=== PATIENT | male | born 1990 | race African-American/Black ===

== ENCOUNTER 2016-05-08 05:42 | Emergency (ER) | payer MEDICAID ==
[2016-05-08 06:24] LABS: BASOPHILS 0.4 % (0.0-2.0); EOSINOPHILS 2.3 % (0-7); HEMATOCRIT 28.1 % (42.0-54.0); HEMOGLOBIN 9.2 g/dL (13.5-17.5); LYMPHOCYTES 39.6 % (15-50); MCH 27.8 pg (26.0-34.0); MCHC 32.7 g/dL (31.0-37.0); MCV 84.9 fL (80.0-100.0); MEAN PLATELET VOLUME 8.4 fL (7.4-10.4); MONOCYTES 10.8 % (2-11); NEUTROPHILS 44.9 % (40-80); PLATELET COUNT 355 10x3/uL (130-400); RBC 3.31 10x6/uL (4.20-6.10); RDW 21.2 % (11.5-14.5); WBC 17.1 10x3/uL (4.8-10.8)
[2016-05-08] MEDS ORDERED: FOLIC ACID0.8 MG PO (21:57)
[2016-05-09 10:49] VITALS: BMI 18.2
== END 2016-05-08 08:00 | disposition home or self-care (01) ==
LOC: D.ER 05:42
PROVIDERS: Emergency Medicine
DX: D57.00 Hb-SS disease with crisis, unspecified (principal); I45.10 Unspecified right bundle-branch block

== ENCOUNTER 2016-05-08 08:49 | Emergency (ER) | payer MEDICAID ==
[2016-05-08 09:40] LABS: AMYLASE - SERUM 46 U/L (25-115); CREATINE KINASE 157 UL (21-232); LIPASE 70 U/L (73-393)
[2016-05-08 10:14] LABS: APPEARANCE CLEAR (CLEAR); BACTERIA FEW /hpf (NONE SEEN); BILIRUBIN NEGATIVE (NEGATIVE); COLOR YELLOW (YELLOW); EPITHELIAL CELLS RARE /hpf (0-5); GLUCOSE NEGATIVE (NEGATIVE); KETONE NEGATIVE (NEGATIVE); LEUKOCYTE ESTERASE NEGATIVE (NEGATIVE); MUCUS <1+ /lpf (NONE SEEN); NITRITE NEGATIVE (NEGATIVE); PROTEIN NEGATIVE (NEGATIVE); SPECIFIC GRAVITY 1.005 (1.005-1.020); WHITE CELLS - URINE RARE /hpf (0-5)
[2016-05-08 13:36] LABS: UDS - AMPHET NEGATIVE QUAL (NEGATIVE); UDS - BARB NEGATIVE QUAL (NEGATIVE); UDS - BENZO NEGATIVE QUAL (NEGATIVE); UDS - COCAINE NEGATIVE QUAL (NEGATIVE); UDS - METH NEGATIVE QUAL (NEGATIVE); UDS - OPIATE POSITIVE QUAL (NEGATIVE); UDS - PCP NEGATIVE QUAL (NEGATIVE); UDS - THC NEGATIVE QUAL (NEGATIVE)
[2016-05-08] MEDS ORDERED: FOLIC ACID0.8 MG PO (21:57)
[2016-05-09 10:49] VITALS: BMI 18.2
== END 2016-05-08 13:07 | disposition home or self-care (01) ==
LOC: D.ER 08:49
PROVIDERS: Family Medicine
DX: D57.00 Hb-SS disease with crisis, unspecified (principal)

== ENCOUNTER 2016-05-08 19:07 | Inpatient (IN) | payer MEDICAID ==
[~2016-05-08] VITALS: Ht 172.7 cm; Wt 54.4 kg
[2016-05-08] MEDS ORDERED: FOLIC ACID0.8 MG PO (21:57)
[2016-05-08 23:34] VITALS: BP 124/76; BMI 18.2
[2016-05-09 06:17] LABS: MCH 28.1 pg (26.0-34.0); MCV 87.7 fL (80.0-100.0); MEAN PLATELET VOLUME 8.7 fL (7.4-10.4); PLATELET COUNT 237 10x3/uL (130-400); RBC 2.85 10x6/uL (4.20-6.10); RDW 21.4 % (11.5-14.5); WBC 20.1 10x3/uL (4.8-10.8)
[2016-05-09 07:34] LABS: ANISOCYTOSIS OCC; HYPOCHROMASIA OCC; LYMPHOCYTES 31 % (15-50); MONOCYTES 10 % (2-11); NEUTROPHILS 53 % (40-80); PLATELET ESTIMATE NORMAL
[2016-05-09 07:35] LABS: ELLIPTOCYTES OCC
--- NOTE | 2016-05-09 07:51 | NUR ---
AWAKE AND ALERT. ORIENTED X3. C/O PAIN TO LEFT SHOULDER AND HIP THIS AM. WILL MONITOR. TO SOON FOR TORADOL. LUNGS ARE CLEAR BILATERALLY, NO COUGH NOTED. SKIN IS INTACT WITHOUT REDNESS. IV TO LEFT HAND IS PATENT WITHOUT REDNESS. NO NEEDS. NOTED.
[2016-05-09 08:12] VITALS: BP 138/84
--- NOTE | 2016-05-09 09:30 | NUR ---
UP TO SHOWER WITH SET UP ASSISTANCE ONLY.
--- NOTE | 2016-05-09 10:06 | NUR ---
REQUESTED AND GIVEN 30MG TORADOL SLOW IVP FOR C/O LEFT SHOULDER AND BACK AND LEFT LEG PAIN LEVEL 9. WILL MONITOR.
[2016-05-09 10:34] LABS: ALBUMIN 3.9 g/dL (3.4-5.0); ALKALINE PHOSPHATASE 120 U/L (46-116); ALT (SGPT) 39 U/L (10-68); BILIRUBIN - TOTAL 3.78 mg/dL (0.2-1.3); CALC OSMOLALITY 276 mosm/kg (275-300); CALCIUM 8.6 mg/dL (8.5-10.1); CARBON DIOXIDE 24.2 mmol/L (21.0-32.0); CHLORIDE - SERUM 106 mmol/L (98-107); CREATININE - SERUM 0.7 mg/dL (0.6-1.3); GLUCOSE 93 mg/dL (74-106); POTASSIUM - SERUM 4.3 mmol/L (3.5-5.1); PROTEIN - SERUM 6.8 g/dL (6.4-8.2); SODIUM 140 mmol/L (136-145); UREA NITROGEN 8 mg/dL (7-18); eGFR NON AFRICAN AMERICAN > 90 mL/min (90-120)
[2016-05-09 10:49] VITALS: Ht 172.7 cm; Wt 54.4 kg
[2016-05-09 12:06] VITALS: BP 128/85
--- NOTE | 2016-05-09 12:30 | NUR ---
LUNCH SERVED IN ROOM. ATE OVER HALF OF TRAY. DENIES NEEDS. REPORTS VERY LITTLE RELIEF WITH USE OF TORADOL. WILL CONTINUE TO MONITOR.
--- NOTE | 2016-05-09 14:45 | NUR ---
REQUESTED AND GIVNE 12.5 MG DEMEROL SLOW IVP FOR C/O LEFT SIDED PAIN LEVEL 8. WILL MONITOR.
--- NOTE | 2016-05-09 15:45 | NUR ---
REPORTS SOME RELIEF WITH USE OF DEMEROL. WILL CONTINUE TO MONITOR.
--- NOTE | 2016-05-09 15:48 | NUR ---
Patient Name: MARI FITCH Admission Status: ER Accout number: [id number] Admission Date: 05-09-2016 : 1990 Admission Diagnosis: Attending: FIGUEROA Current LOS: 1 Anticipated DC Date: 05-12-2016 Planned Disposition: Home or Self Care Primary Insurance: MEDICAID [place] Discharge Planning Comments: CM MET WITH PATIENT REGARDING D/C NEEDS AND PLANS. PATIENT STATED HE LIVES AT [facility] AND THERE ARE 7 STEPS W/RAILS TO ENTER AND NO STAIRS INSIDE. PATIENT STATED HIS FRIEND (PETAR) WILL DRIVE HIM HOME AT DISCHARGE. PATIENT STATED HE IS INDEPENDENT WITH HIS CARE AND HAS NO DME AT HOME. PATIENT HAS NO PCP AND USES [facility] [address] FOR HIS PHARMACY. PATIENT HAS NEVER HAD HOME HEALTH AND DOES NOT WANT IT. CM WILL CONTINUE TO FOLLOW PATIENT WITH D/C NEEDS AND PLANS. PCP NONE [facility] [address]- [phone] PETAR DELGADILLO (FRIEND) [phone] Rn Cardiovascular [facility]: Kate Chavez Is the patient Alert and Oriented? Yes 0 * How many steps to enter\exit or inside your home? 7 W/RAILS 0 * PCP NONE 0 * Pharmacy [facility] [address] 0 * Preadmission Environment [facility] 0 * Facility Name [facility]) 0 * ADLs Independent 0 * Equipment None 0 * List name and contact numbers for known caregivers / representatives who currently or will assist patient after discharge: PETAR DELGADILLO (FRIEND) [phone] 0 * Community resources currently utilized None 0 * Additional services required to return to the preadmission environment? Yes 0 * Can the patient safely return to the preadmission environment? Yes 0 * Has this patient been hospitalized within the prior 30 days at any hospital? No 0 Grand Total: 0
--- NOTE | 2016-05-09 16:25 | NUR ---
REPORTS PAIN TO LEFT SHOULDER ARM BACK AND LEG AT AT LEAST AN 8. REQUESTED AND GIVEN 30MG TORADOL SLOW IVP FOR SAME. WILL MONITOR.
[2016-05-09 17:31] VITALS: BP 124/77
--- NOTE | 2016-05-09 18:22 | NUR ---
ATE ABOUT HALF OF SUPPER TRAY. CONTINUES TO C/O PAIN LEVEL9. WILL MONITOR. REQUESTED AND GIVEN 1MG DILAUDID SLOW IVP FOR SAME. WILL MONITOR.
--- NOTE | 2016-05-09 19:30 | NUR ---
RESTING QUIETLY AT THIS TIME. DENIES NEEDS. NO CHANGES NOTED.
[2016-05-09 20:00] VITALS: BP 135/87
[2016-05-10] VITALS: BP 122/75
--- NOTE | 2016-05-10 03:30 | NUR ---
PATIENT'S IV OCCLUDED. FLUSHED IV. PATIENT DENIES OTHER NEEDS AT THIS TIME. BED IN LOWEST POSITION AND CALL LIGHT WITHIN REACH.
[2016-05-10 04:00] VITALS: BP 128/89
[2016-05-10 06:14] LABS: BASOPHILS 0.2 % (0.0-2.0); EOSINOPHILS 0.1 % (0-7); HEMATOCRIT 23.9 % (42.0-54.0); HEMOGLOBIN 7.9 g/dL (13.5-17.5); IMMATURE GRANULOCYTES 0.7 % (0-5); LYMPHOCYTES 26.7 % (15-50); MCH 28.1 pg (26.0-34.0); MCHC 33.1 g/dL (31.0-37.0); MCV 85.1 fL (80.0-100.0); MEAN PLATELET VOLUME 8.9 fL (7.4-10.4); MONOCYTES 15.3 % (2-11); PLATELET COUNT 215 10x3/uL (130-400); RBC 2.81 10x6/uL (4.20-6.10); RDW 19.5 % (11.5-14.5); WBC 24.1 10x3/uL (4.8-10.8)
[2016-05-10 06:15] LABS: % SATURATION 16 % (15-55); IRON 25 ug/dl (35-150); TOTAL IRON BIND CAPACITY 152 ug/dl (260-445); UNSAT IRON BIND CAPACITY 127 ug/dl (150-375)
[2016-05-10 06:48] LABS: ALBUMIN 3.6 g/dL (3.4-5.0); ALKALINE PHOSPHATASE 132 U/L (46-116); ALT (SGPT) 36 U/L (10-68); BILIRUBIN - TOTAL 5.24 mg/dL (0.2-1.3); CALCIUM 8.8 mg/dL (8.5-10.1); CARBON DIOXIDE 27.9 mmol/L (21.0-32.0); CHLORIDE - SERUM 102 mmol/L (98-107); CREATININE - SERUM 0.8 mg/dL (0.6-1.3); SODIUM 139 mmol/L (136-145); UREA NITROGEN 7 mg/dL (7-18); eGFR NON AFRICAN AMERICAN > 90 mL/min (90-120)
[2016-05-10 06:49] LABS: CALC OSMOLALITY 278 mosm/kg (275-300); FERRITIN 7493 ng/mL (3-244); GLUCOSE 152 mg/dL (74-106); POTASSIUM - SERUM 3.5 mmol/L (3.5-5.1)
[2016-05-10 08:18] VITALS: BP 112/62
--- NOTE | 2016-05-10 08:41 | NUR ---
PATIENT IS LYING IN BED IN LOW FOWLERS. IS READING HIS BIBLE. REPORTED PAIN OF A 7 AFTER THE REASSESSMENT. BROUGHT ICE WATER. DENIED NEEDS @ THIS TIME. BED LOW AND LOCKED. INTRUCTED TO CALL IF NEEDED ANYTHING. PATIENT VERBALIZED UNDERSTANDING.
--- NOTE | 2016-05-10 09:04 | NUR ---
MACHINE SHORTHAND REPORTER NOTE-PT SEEN AND ASSESSED. STATES PAIN IS CONTROLLED AT PRESENT. NO SOB NOTED OR VOICED. LYING ON LEFT SIDE AND IN PLEASANT MOOD THIS AM. NO NEEDS AT THIS TIME. CALL LIGHT PLACED IN REACH OF PATIENT.
--- NOTE | 2016-05-10 10:27 | NUR ---
PT HAD A VISITOR IN ROOM. STATED PAIN WAS A 7 OUT OF 10. ADMINISTERED PAIN MED. WILL REASSES IN 45 MIN. BED LOW AND LOCKED. INTRUCTED TO CALL IF NEEDED ANYTHING. DENIED NEEDS AT THIS TIME.
--- NOTE | 2016-05-10 12:59 | NUR ---
REASSESED PATIENT PAIN @ 8. ADMINISTERED MEDS ORDERED. PATIENT LYING IN BED ON LEFT SIDE. DENIED NEEDS @ THIS TIME. INSTRUCTED TO CALL IF NEEDED ANYTHING. PATIENT VERBALIZED UNDERSTANDING. WILL REASSES PAIN IN 30MINS. BED LOW, LOCKED, CALL LIGHT IN REACH.
[2016-05-10 13:19] LABS: APPEARANCE CLEAR (CLEAR); COLOR YELLOW (YELLOW)
[2016-05-10 13:20] LABS: BACTERIA FEW /hpf (NONE SEEN); BILIRUBIN NEGATIVE (NEGATIVE); EPITHELIAL CELLS 0-5 /hpf (0-5); GLUCOSE NEGATIVE (NEGATIVE); KETONE NEGATIVE (NEGATIVE); LEUKOCYTE ESTERASE TRACE (NEGATIVE); MUCUS <1+ /lpf (NONE SEEN); NITRITE NEGATIVE (NEGATIVE); PROTEIN NEGATIVE (NEGATIVE); WHITE CELLS - URINE OCC /hpf (0-5)
[2016-05-10 15:53] VITALS: BP 140/59
--- NOTE | 2016-05-10 16:08 | NUR ---
CHECKED ON PATIENT. LYING IN BED. COMPLAINTS OF PAIN @ 8. STATED THAT "HE DID NOT WANT TO TAKE ANYMORE PAIN MEDS DUE TO A PERSON MISUNDERSTANDING HIM FROM SAYING HE WAS "HOT FOR HIGH"" EDUCATED PATIENT ON THE IMPORTANCE TO KEEP PAIN UNDER CONTROL. VERBALIZED UNDERSTANDING BUT STATED THAT "HE WOULD HOLD OFF ON ANY MORE PAIN MEDS FOR NOW". ALSO TOOK HIM SOME CRANBERRY JUICE AND SPRITE. INSRUCTED TO CALLL IF NEEDED ANYTHING. DENIED FURTHER NEEDS. BED LOCKED, LOW, CALL LIGHT WITHIN REACH. PATIENT VERBALIZED UNDERSTANDING.
--- NOTE | 2016-05-10 18:03 | NUR ---
@ 1246 ADMININISTERD PAIN MEDICATION HAD A REACTION OF ITCHING. ORDERED BENADRYL 25MG. ADMINISTERED BENADRYL @ 1400 REPORTS OF NO MORE ITCHING. PATIENT HAS BEEN IN PAIN ALL DAY RANGING FROM 6-8. @ ONE POINT PT STATED THAT HE DID NOT WANT TO TAKE ANYMORE PAIN MEDS. EDUCATED PATIENT ON THE IMPORTANCE OF PAIN CONTROL. BACKED TO DILADID FROM 2MG TO 1MG PER DOC ORDERS. ALSO HAD AN XRAY. ONLY TIME WAS OOB. BED LOW, LOCKED AND CALL LIGHT IS IN REACH.
--- NOTE | 2016-05-10 19:57 | NUR ---
PATIENT SLEEPING ON RIGHT SIDE. AROUSES TO VOICE. HOB 20 DEGREES. RR EVEN AND UNLABORED. O2 OFF AT THIS TIME. IV TO LEFT HAND PATENT WITH NO REDNESS OR SWELLING. TELEMETRY ON. SRX2. BED LOW. CALL LIGHT WITHIN REACH.
[2016-05-10 20:00] VITALS: BP 120/71
--- NOTE | 2016-05-10 21:00 | NUR ---
ASSESSMENT COMPLETE. NIGHTTIME MEDS GIVEN. DILAUDID GIVEN FOR PAIN AND BENADRYL GIVEN FOR ALLERGIC REACTION. WILL REASSESS.
--- NOTE | 2016-05-10 23:45 | NUR ---
TORADOL GIVEN FOR PAIN AND TYLENOL GIVEN FOR A TEMP OF 101.7.
[2016-05-11] VITALS: BP 132/83
--- NOTE | 2016-05-11 03:00 | NUR ---
DILAUDID GIVEN FOR PAIN OF 7/10 AND BENADRYL GIVEN.
[2016-05-11 04:00] VITALS: BP 123/70
[2016-05-11 06:11] LABS: BASOPHILS 0.2 % (0.0-2.0); EOSINOPHILS 0.3 % (0-7); HEMATOCRIT 23.7 % (42.0-54.0); HEMOGLOBIN 7.7 g/dL (13.5-17.5); IMMATURE GRANULOCYTES 0.4 % (0-5); LYMPHOCYTES 22.3 % (15-50); MCH 27.2 pg (26.0-34.0); MCHC 32.5 g/dL (31.0-37.0); MCV 83.7 fL (80.0-100.0); MEAN PLATELET VOLUME 8.8 fL (7.4-10.4); MONOCYTES 20.1 % (2-11); NEUTROPHILS 56.7 % (40-80); PLATELET COUNT 187 10x3/uL (130-400); RBC 2.83 10x6/uL (4.20-6.10); RDW 18.8 % (11.5-14.5)
[2016-05-11 06:45] LABS: ALBUMIN 3.5 g/dL (3.4-5.0); ALKALINE PHOSPHATASE 123 U/L (46-116); ALT (SGPT) 35 U/L (10-68); BILIRUBIN - TOTAL 5.07 mg/dL (0.2-1.3); CALCIUM 8.9 mg/dL (8.5-10.1); CHLORIDE - SERUM 103 mmol/L (98-107); CREATININE - SERUM 0.7 mg/dL (0.6-1.3); GLUCOSE 96 mg/dL (74-106); POTASSIUM - SERUM 3.8 mmol/L (3.5-5.1); PROTEIN - SERUM 6.5 g/dL (6.4-8.2); SODIUM 141 mmol/L (136-145); eGFR NON AFRICAN AMERICAN > 90 mL/min (90-120)
[2016-05-11 06:46] LABS: CALC OSMOLALITY 279 mosm/kg (275-300); UREA NITROGEN 9 mg/dL (7-18)
--- NOTE | 2016-05-11 07:30 | NUR ---
PT ASSESSMENT COMPLETE PT AWAKE AND ALERT ORINETED X 3 LUNGS CLAER BILAT. BSA X 4 QUADS. PT PIV INFILTRATED WILL RESITE.
[2016-05-11 07:58] VITALS: BP 120/70
[2016-05-11 09:18] LABS: FOLATE (FOLIC ACID) - SERUM 11.9 ng/mL (>3.0); VITAMIN D 25 HYDROXY 4.8 ng/mL (30.0-100.0)
--- NOTE | 2016-05-11 09:38 | NUR ---
IV access-20 gauge inserted in left hand for IV access. Mar Díaz RN
[2016-05-11 11:39] VITALS: BP 117/78
--- NOTE | 2016-05-11 11:50 | NUR ---
FIRST UNIT OF PRBC INITIATED PER RN VITAL SIGNS TAKEN WNL. TRANSFUSING THROUGH 20G TO RIGHT UPPER CHEST. MONITORED FIRST 15 MINUTES PER RN, NO REACTIONS NOTED. TREATED WITH TYLENOL PER ORDER.
--- NOTE | 2016-05-11 14:25 | NUR ---
NUTRITION MONITORING & EVAL SIGRID REVIEWED. PT TOLERATING REG DIET. 75% INTAKE RECENT MEALS. WILL CONTINUE TO PROVIDE DIET, HONOR FOOD PREFERENCES. RD FOLLOWING
--- NOTE | 2016-05-11 15:30 | NUR ---
FIRST UNIT PRBC COMPLETE, PT TOLERATED WELL. DENIES SOB, LUNGS CLEAR, CALL LIGHT IN REACH, SIDE RAILS UP X2. WILL INITIATE SECOND UNIT PER RN WHEN AVAILABLE.
[2016-05-11 15:45] VITALS: BP 146/82
--- NOTE | 2016-05-11 15:50 | NUR ---
SECOND UNIT OF PRBC INITIATED PER RN. VITAL SIGNS WNL. NO ACUTE DISTRESS NOTED. MONITORED X 15 MINUTES PER RN. NO REACTION NOTED. WILL CONTINUE TO MONITOR.
--- NOTE | 2016-05-11 17:46 | NUR ---
PRBC TRANSFUSION COMPLETE. NEW ORDERS PER DR. LOMAS FOR NORCO 2 TABS PO Q4 GIVEN ORDERED, WILL MONITOR EFFECTIVENESS.
--- NOTE | 2016-05-11 19:16 | NUR ---
REFUSE 1900 TREATMENT, STATED HE HAS NOT TAKEN BREATHING TREATMENT ALL DAY TODAY AND DOES NOT NEED THEM. WILL DO HIS BREATHING EXERCISE(IS), GETTING 1999 ON THAT.
--- NOTE | 2016-05-11 19:38 | NUR ---
INTRODUCED AND ASSESSED AT THIS TIME
[2016-05-11 20:00] VITALS: BP 107/68
--- NOTE | 2016-05-11 22:33 | NUR ---
ALL BEDTIME MEDS TAKEN. HE IS RESTING QUIET READING THE BIBLE. ALL BEDTIME MEDS TAKEN AND ALSO TWO NORCO ORDERED. HE IS QUIET AND COOPERATIVE. THERE IS NOT SCD'S AT THIS TIME. VERY QUIET YOUNG MAN.
[2016-05-12] VITALS: BP 129/86
[2016-05-12 04:00] VITALS: BP 138/89
[2016-05-12 05:06] LABS: HEMATOCRIT 27.2 % (42.0-54.0); HEMOGLOBIN 9.3 g/dL (13.5-17.5); LYMPHOCYTES 18.4 % (15-50); MCH 28.3 pg (26.0-34.0); MCHC 34.2 g/dL (31.0-37.0); MCV 82.7 fL (80.0-100.0); MEAN PLATELET VOLUME 8.8 fL (7.4-10.4); NEUTROPHILS 62.5 % (40-80); PLATELET COUNT 178 10x3/uL (130-400); RBC 3.29 10x6/uL (4.20-6.10); RDW 19.7 % (11.5-14.5); WBC 17.1 10x3/uL (4.8-10.8)
[2016-05-12 05:21] LABS: ALBUMIN 3.4 g/dL (3.4-5.0); ALKALINE PHOSPHATASE 112 U/L (46-116); ALT (SGPT) 38 U/L (10-68); CALC OSMOLALITY 278 mosm/kg (275-300); CALCIUM 8.6 mg/dL (8.5-10.1); CARBON DIOXIDE 29.2 mmol/L (21.0-32.0); CHLORIDE - SERUM 103 mmol/L (98-107); CREATININE - SERUM 0.8 mg/dL (0.6-1.3); GLUCOSE 107 mg/dL (74-106); PROTEIN - SERUM 6.6 g/dL (6.4-8.2); SODIUM 140 mmol/L (136-145); eGFR NON AFRICAN AMERICAN > 90 mL/min (90-120)
[2016-05-12 05:22] LABS: UREA NITROGEN 12 mg/dL (7-18)
--- NOTE | 2016-05-12 07:56 | NUR ---
Patient is awake and alert he is orieted x3, he says he is having pain, but the medication they have prescribed is not working. He is currently on Rougon, but he says nothing he has tried has been helpful. Will provide Rougon and then ask Nurse Practitioner what she suggests.
[2016-05-12 08:13] VITALS: BP 125/88
--- NOTE | 2016-05-12 08:23 | NUR ---
Patient c/o pain rates it /10, says it is in his left shoulder. Gratz 2 po provided as ordered, see MAR.
--- NOTE | 2016-05-12 12:30 | NUR ---
ATTEMPTED TO PROVIDE DILAUDID GREY GOODS MARKER, PATIENT REFUSED, HE THEN BEGAN TO SAY WE WERE FRAUDULENT AND THAT HE WILL CALL MEDICARE. 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 LISTENED TO PATIENT HE IS IN PAIN, DID CALL NURSE PRACTITIONER TO GET A NEW ORDER FOR PAIN MEDS.
[2016-05-12 12:43] VITALS: BP 113/75
--- NOTE | 2016-05-12 14:45 | NUR ---
PATIENT RATES PAIN 10/10, PROVIDED DILAUDID AND BENADRYL PER ORDER.
--- NOTE | 2016-05-12 15:10 | NUR ---
CHECKED ON PATIENT AND HE SAYS "NOW, LET'S BE REAL, YOU KNOW YOU TOOK A LOT LONGER TO PUSH THE BENADRYL AND FLUSH THAN YOU TOOK FOR THE PAIN MED" EXPLAINED THAT IT TOOK TWO MINUTES FOR EACH. PATIENT IS ACTING BIZARRE, ASKED OTHERS WHAT THEY WERE SEEING.
--- NOTE | 2016-05-12 15:24 | NUR ---
TEMP 102.2, PAGED NURSE PRACTITIONER, WILL PROVIDE TYLENOL PO
--- NOTE | 2016-05-12 15:25 | NUR ---
NURSE PRACTITIONER CALLED BACK, NEW ORDER FOR BLOOD CULTURE X1 AND UA.
[2016-05-12 15:50] VITALS: BP 145/84
--- NOTE | 2016-05-12 17:30 | NUR ---
PATIENT MAKING MULTIPLE REQUESTS TO GET ONE OF HIS FRIENDS PHONE NUMBERS, DID PROVIDE NUMBER, BUT PATIENT IS STILL UPSET.
--- NOTE | 2016-05-12 18:07 | NUR ---
PATIENT C/O PAIN AT IV SITE, CALLED ICU TO SEE IF THEY CAN RESITE.
--- NOTE | 2016-05-12 18:16 | NUR ---
ASKED PATIENT IF HE WAS ABLE TO GET A URINE SAMPLE HE HAS A UA ORDERED, HE SAYS "NO", WILL MONITOR.
--- NOTE | 2016-05-12 18:40 | NUR ---
BIRGIT VELASCO FROM ICU ATTEMPTED TO IV ATEMPTS, BOTH ATTEMPTS FAILED, SHE SUGGESTED POSSIBLE PICC LINE OR MIDLINE.
[2016-05-12 21:03] VITALS: BP 131/93
--- NOTE | 2016-05-12 23:24 | NUR ---
PT WAS ASSESSED AT THE BEGINNING OF THE SHIFT. HE DID NOT HAVE AN IV SITE AND SEVERAL NURSES HAD TRIED. AFTER 4 TRYS AFTER SHIFT CHANGE WE CALL THE MD. DR OCAMPO GAVE US ORDERS TO MAKE THE PAIN MED IM AND HIS BENADRYL PO. WE ALSO GAVE A ONE TIME DOSE OF LEVAQUIN PO SO HE WOULD NOT MISS HIS ANTIBOTIC WHEN IT WAS DUE.HE IS ABLE TO GET UP TO THE BATHROOM TO VOID AND IS ALSO USING A URINAL. HE IS TURNING AND REPOSITION NEEDED, EVEN WALKING THE HALLS. THE BED IS LOW, RAILS UP X'S 2 WITH THE CALL LIGHT AT HAND.
[2016-05-13 01:17] VITALS: BP 143/97
[2016-05-13 04:00] VITALS: BP 146/95
[2016-05-13 05:30] LABS: HEMATOCRIT 29.7 % (42.0-54.0); LYMPHOCYTES 22.4 % (15-50); MCH 27.8 pg (26.0-34.0); MCHC 33.7 g/dL (31.0-37.0); MCV 82.5 fL (80.0-100.0); MEAN PLATELET VOLUME 8.9 fL (7.4-10.4); NEUTROPHILS 58.5 % (40-80); PLATELET COUNT 233 10x3/uL (130-400); RDW 19.2 % (11.5-14.5); WBC 16.9 10x3/uL (4.8-10.8)
[2016-05-13 05:46] LABS: ALBUMIN 3.7 g/dL (3.4-5.0); ALKALINE PHOSPHATASE 117 U/L (46-116); ALT (SGPT) 35 U/L (10-68); BILIRUBIN - TOTAL 3.34 mg/dL (0.2-1.3); CALC OSMOLALITY 274 mosm/kg (275-300); CALCIUM 9.7 mg/dL (8.5-10.1); CARBON DIOXIDE 28.6 mmol/L (21.0-32.0); CHLORIDE - SERUM 101 mmol/L (98-107); CREATININE - SERUM 0.8 mg/dL (0.6-1.3); GLUCOSE 88 mg/dL (74-106); POTASSIUM - SERUM 4.3 mmol/L (3.5-5.1); PROTEIN - SERUM 8.2 g/dL (6.4-8.2); SODIUM 138 mmol/L (136-145); UREA NITROGEN 13 mg/dL (7-18); eGFR NON AFRICAN AMERICAN > 90 mL/min (90-120)
--- NOTE | 2016-05-13 07:30 | NUR ---
PT REC'D FROM KRISTA ROMAN. RESTING IN BED WITH EYES CLOSED. NO SIGNS OF DISTRESS. RESP EVEN AND UNLABORED. BED LOW, CALL LIGHT IN REACH, CPOC.
--- NOTE | 2016-05-13 08:03 | NUR ---
PATIENT ALERT IN LOW FOREMAN POSITION. RESPIRATIONS EVEN AND UNLABORED. SIDE RAILS UP X2. BED IN LOW POSITION. CALL LIGHT IN REACH.
[2016-05-13 08:24] VITALS: BP 114/78
--- NOTE | 2016-05-13 10:55 | NUR ---
MORNING MEDS PASSED AT THIS TIME. PT RATING CURRENT PAIN IN LEFT SHOULDER AND HIP 09/02. REFUSING PAIN MEDS. ALSO REFUSING MIRALAX, AND REFUSED NICOTINE PATCH. BED LOW, CALL LIGHT IN REACH, DENIES NEEDS, CPOC.
[2016-05-13 12:42] VITALS: BP 100/66
--- NOTE | 2016-05-13 13:00 | NUR ---
IV RESITED BY KRISTA SILVA. X2 ATTEMPTS. 22 GUAGE IV SITED TO LEFT FOREARM. CONNECTED IVF TO IT AND ADMINISTERED IV DILAUDID FOR 10/10 L SHOULDER AND HIP PAIN. WILL REASSESS.
[2016-05-13 18:39] VITALS: BP 127/82
[2016-05-13 20:49] VITALS: BP 120/82
--- NOTE | 2016-05-13 23:15 | NUR ---
ASSESSED AT THE BEGINNING OF THE SHIFT. PT IS ALAERT AND ORIENTED, ABLAE TO VERBALIZE NEEDS. HE NOW HAS A IV IN HIS LEFT FOREARM WHICH IS WORKING WELL. FRIENDS CAME TO VISIT DURING THE EVENING AND SEEMED TO CHEER HIM UP QUIET A BIT. HE RECEIVED PAIN MEDS AND BENADRYL AT AROUND 2130 WHICH HELPED HIM REST BETTER. HE KEEPS HIS LIGHT ON AND IS READING HIS BIBLE OFF AND ON. INSTRUCTED THAT HE NEEDED TO GIVE US A URINE SPECIMEN FOR LAB. THE BED IS LOW, RAILS UP X'S 2 WITH THE CALL LIGHT AT HAND.
[2016-05-14] VITALS: BP 112/81
[2016-05-14 04:00] VITALS: BP 124/94
--- NOTE | 2016-05-14 07:00 | NUR ---
PT REC'D FROM KRISTA ROMAN. RESTING IN BED QUIETLY. RATING CURRENT PAIN IN L SHOULDER AND L HIP 10/10. WILL ADMINISTER PAIN MEDS WHEN TIME. BED LOW, CALL LIGHT IN REACH, DENIES NEEDS.
[2016-05-14 07:01] LABS: APPEARANCE CLEAR (CLEAR); BILIRUBIN NEGATIVE (NEGATIVE); COLOR YELLOW (YELLOW); GLUCOSE NEGATIVE (NEGATIVE); KETONE NEGATIVE (NEGATIVE); LEUKOCYTE ESTERASE NEGATIVE (NEGATIVE); NITRITE NEGATIVE (NEGATIVE); PROTEIN NEGATIVE (NEGATIVE); SPECIFIC GRAVITY 1.005 (1.005-1.020); UROBILINOGEN NORMAL (NORMAL)
[2016-05-14 07:04] LABS: BASOPHILS 0.4 % (0.0-2.0); EOSINOPHILS 0.8 % (0-7); HEMATOCRIT 31.7 % (42.0-54.0); HEMOGLOBIN 10.3 g/dL (13.5-17.5); IMMATURE GRANULOCYTES 0.3 % (0-5); LYMPHOCYTES 21.3 % (15-50); MCH 26.8 pg (26.0-34.0); MCHC 32.5 g/dL (31.0-37.0); MCV 82.3 fL (80.0-100.0); MEAN PLATELET VOLUME 8.8 fL (7.4-10.4); MONOCYTES 21.9 % (2-11); NEUTROPHILS 55.3 % (40-80); PLATELET COUNT 214 10x3/uL (130-400); RBC 3.85 10x6/uL (4.20-6.10); RDW 18.4 % (11.5-14.5); WBC 14.7 10x3/uL (4.8-10.8)
[2016-05-14 07:42] LABS: ALBUMIN 3.8 g/dL (3.4-5.0); ALKALINE PHOSPHATASE 118 U/L (46-116); ALT (SGPT) 37 U/L (10-68); BILIRUBIN - TOTAL 2.79 mg/dL (0.2-1.3); CALC OSMOLALITY 274 mosm/kg (275-300); CALCIUM 9.3 mg/dL (8.5-10.1); CARBON DIOXIDE 27.6 mmol/L (21.0-32.0); CHLORIDE - SERUM 101 mmol/L (98-107); CREATININE - SERUM 0.7 mg/dL (0.6-1.3); GLUCOSE 89 mg/dL (74-106); POTASSIUM - SERUM 4.6 mmol/L (3.5-5.1); PROTEIN - SERUM 7.6 g/dL (6.4-8.2); SODIUM 138 mmol/L (136-145); UREA NITROGEN 12 mg/dL (7-18); eGFR NON AFRICAN AMERICAN > 90 mL/min (90-120)
[2016-05-14 08:07] VITALS: BP 122/86
--- NOTE | 2016-05-14 09:35 | NUR ---
PT RESTING IN BED, ASSESSMENT COMPLETE, PAIN AT A 7 OUT OF 10, NO OTHER COMPLAINTS AT THIS TIME, DILAUDED AND BENADRYL GIVEN PER MAR, TOLERATED WELL, CALL LIGHT IN REACH, BED LOWEST POSITION, WILL CONINUE TO MONITOR
--- NOTE | 2016-05-14 09:40 | NUR ---
PATIENT IN LEFT LATERAL POSITION RESTING WITH EYES CLOSED. RESPIRATIONS EVEN AND UNLABORED. SIDE RAILS UP X2. BED IN LOW POSITION. CALL LIGHT IN REACH.
--- NOTE | 2016-05-14 11:15 | NUR ---
PT COMPLAINS OF EXTREME PAIN IN LEFT LEG, PAIN MEDS DIDN'T HELP WITH THE PAIN, GIVEN MOTRIN FOR BREAKTHROUGH PAIN, WILL CONTINUE TO MONITOR
[2016-05-14 12:03] VITALS: BP 107/69
--- NOTE | 2016-05-14 14:25 | NUR ---
PT COMPLAINS OF PAIN AT A LEVEL OF 7, PAIN MEDS GIVEN PER MAR WILL CONTINUE TO MONITOR
[2016-05-14 16:07] VITALS: BP 112/70
--- NOTE | 2016-05-14 20:00 | NUR ---
ASSESSMENT PER FLOWSHEET. IV PATENT LEFT FOREARM OF LR AT 125CC'S/HR, SITE CLEAR. TELM. SHOWS SR OF 74. DENIES NEEDS.
--- NOTE | 2016-05-14 21:00 | NUR ---
MEDS GIVEN PER MAR.
[2016-05-14 21:43] VITALS: BP 111/64
--- NOTE | 2016-05-14 22:41 | NUR ---
C/O LEFT SHOULDER PAIN. DILAUDID 1 MG IV AND BENADRYL IVP GIVEN FOR PAIN CONTROL.
--- NOTE | 2016-05-15 00:25 | NUR ---
AWAKE PLAYING ON HIS CELL PHONE. DENIES NEEDS.
[2016-05-15 05:00] VITALS: BP 112/74
--- NOTE | 2016-05-15 06:56 | NUR ---
NO CHANGES IN ASSESSMENT.
[2016-05-15 08:34] VITALS: BP 110/74
[2016-05-15 09:59] LABS: BASOPHILS 0.3 % (0.0-2.0); EOSINOPHILS 1.4 % (0-7); HEMATOCRIT 29.9 % (42.0-54.0); HEMOGLOBIN 9.9 g/dL (13.5-17.5); IMMATURE GRANULOCYTES 0.3 % (0-5); LYMPHOCYTES 20.1 % (15-50); MCH 26.8 pg (26.0-34.0); MCHC 33.1 g/dL (31.0-37.0); MCV 80.8 fL (80.0-100.0); MONOCYTES 14.6 % (2-11); NEUTROPHILS 63.3 % (40-80); RDW 18.9 % (11.5-14.5); WBC 11.8 10x3/uL (4.8-10.8)
[2016-05-15 10:01] LABS: PLATELET COUNT 303 10x3/uL (130-400)
[2016-05-15 10:14] LABS: ALBUMIN 3.5 g/dL (3.4-5.0); ALKALINE PHOSPHATASE 120 U/L (46-116); BILIRUBIN - TOTAL 1.88 mg/dL (0.2-1.3); CALC OSMOLALITY 278 mosm/kg (275-300); CALCIUM 9.6 mg/dL (8.5-10.1); CARBON DIOXIDE 29.3 mmol/L (21.0-32.0); CHLORIDE - SERUM 101 mmol/L (98-107); CREATININE - SERUM 0.7 mg/dL (0.6-1.3); GLUCOSE 120 mg/dL (74-106); POTASSIUM - SERUM 4.4 mmol/L (3.5-5.1); PROTEIN - SERUM 8.2 g/dL (6.4-8.2); SODIUM 139 mmol/L (136-145); UREA NITROGEN 13 mg/dL (7-18); eGFR NON AFRICAN AMERICAN > 90 mL/min (90-120)
[2016-05-15 10:16] LABS: ALT (SGPT) 58 U/L (10-68)
[2016-05-15 11:23] VITALS: BP 119/83
[2016-05-15 15:18] VITALS: BP 116/80
[2016-05-15 16:11] LABS: HGB - A2 3.4 % (0.7-3.1); HGB - F 2.6 % (0.0-2.0); HGB - INTERPRETATION Note: (()); HGB - SOLUBILITY Positive (Negative)
[2016-05-15 19:00] VITALS: BP 103/60
--- NOTE | 2016-05-15 19:30 | NUR ---
RECIEVED SHIFT REPORT. PT IS LYING IN BED. ALERT AND ORIENTED AND ABLE TO VERBALIZE NEEDS. IV IS PATENT AND FLUIDS ARE RUNNING PER ORDER. PT IS AMBULATORY BUT WAS INSTRUCTED TO CALL FOR ANY ASSISTANCE NEEDED. PT STATES PAIN IS 7/10. NO NEEDS ARE VERBALIZED AT THIS TIME. WILL CONTINUE TO MONITOR. SIDE RAILS ARE UP X 2. BED IS IN LOWEST POSITION. CALL LIGHT IS WITHIN REACH.
--- NOTE | 2016-05-15 20:00 | NUR ---
SHIFT ASSESSMENT COMPLETED. NIGHT MEDICATION WILL BE GIVEN BY MAIL RIDER WITH HIS INSTRUCTOR. NO NEEDS ARE VOICED. WILL MONITOR. SIDE RAILS X 2. BED LOW. CALL LIGHT IN REACH.
[2016-05-16] VITALS: BP 122/80
--- NOTE | 2016-05-16 01:25 | NUR ---
PRN MEDS GIVEN PER MAR FOR C/O PAIN 10/02, NINFA WELL, CL IN REACH
[2016-05-16 04:00] VITALS: BP 108/66
[2016-05-16 05:25] LABS: HEMATOCRIT 27.9 % (42.0-54.0); MCH 26.3 pg (26.0-34.0); MCHC 32.3 g/dL (31.0-37.0); MCV 81.6 fL (80.0-100.0); MEAN PLATELET VOLUME 9.2 fL (7.4-10.4); PLATELET COUNT 362 10x3/uL (130-400); RBC 3.42 10x6/uL (4.20-6.10); RDW 19.3 % (11.5-14.5); WBC 11.6 10x3/uL (4.8-10.8)
[2016-05-16 05:44] LABS: ALBUMIN 3.3 g/dL (3.4-5.0); ALKALINE PHOSPHATASE 123 U/L (46-116); BILIRUBIN - TOTAL 1.69 mg/dL (0.2-1.3); CALC OSMOLALITY 278 mosm/kg (275-300); CALCIUM 9.5 mg/dL (8.5-10.1); CARBON DIOXIDE 30.4 mmol/L (21.0-32.0); CHLORIDE - SERUM 102 mmol/L (98-107); CREATININE - SERUM 0.7 mg/dL (0.6-1.3); GLUCOSE 97 mg/dL (74-106); POTASSIUM - SERUM 4.1 mmol/L (3.5-5.1); PROTEIN - SERUM 7.9 g/dL (6.4-8.2); SODIUM 140 mmol/L (136-145); UREA NITROGEN 13 mg/dL (7-18); eGFR NON AFRICAN AMERICAN > 90 mL/min (90-120)
[2016-05-16 05:49] LABS: ALT (SGPT) 78 U/L (10-68)
[2016-05-16 06:44] LABS: EOSINOPHILS 3 % (0-7); HYPOCHROMASIA 1+; LYMPHOCYTES 33 % (15-50); MONOCYTES 15 % (2-11); NEUTROPHILS 49 % (40-80); PLATELET ESTIMATE NORMAL
[2016-05-16 06:45] LABS: ANISOCYTOSIS OCC
[2016-05-16 07:53] VITALS: BP 127/88
[2016-05-16] MEDS ORDERED: NICODERM C1 PATCH .2 TRANSDERM (10:05)
--- NOTE | 2016-05-16 10:53 | NUR ---
CM REASSESSMENT NOTE: PATIENT IS DISCHARGING TODAY WITH NO NEEDS PER PATIENT. PATIENT STATED HIS FRIEND WILL DRIVE HIM AT DISCHARGE.
--- NOTE | 2016-05-16 11:19 | NUR ---
D/C IV WITH CATH INTACT. DISCHARGE INSTRUCTIONS COMPLETED WITH PATIENT. PATIENT VERBALIZED UNDERSTANDING AND DENIES QUESTIONS.
== END 2016-05-16 11:20 | disposition home or self-care (01) | DRG 812 ==
LOC: D.ER 19:07 → OBSVTIME 20:24 → D.MS 20:24
PROVIDERS: Emergency Medicine; Family Medicine; Legal Medicine; ADMIT Family Medicine
DX: D57.00 Hb-SS disease with crisis, unspecified (principal); D61.89 Other specified aplastic anemias and other bone marrow failure syndromes; E80.6 Other disorders of bilirubin metabolism; M14.8 Arthropathies in other specified diseases classified elsewhere; E83.19 Other disorders of iron metabolism

== ENCOUNTER 2016-08-03 04:35 | Emergency (ER) | payer MEDICAID ==
[2016-05-09 10:49] VITALS: BMI 18.2
[~2016-08-03 04:35] MED LIST: FOLIC ACID0.8 MG PO; NICODERM C1 PATCH .2 TRANSDERM
[2016-08-03 05:15] LABS: BASOPHILS 0.3 % (0-2); EOSINOPHILS 1.2 % (0-7); HEMATOCRIT 27.3 % (42.0-54.0); HEMOGLOBIN 8.9 g/dL (13.5-17.5); IMMATURE GRANULOCYTES 3.8 % (0-5); LYMPHOCYTES 45.6 % (15-50); MCH 27.1 pg (26.0-34.0); MCHC 32.6 g/dL (31.0-37.0); MEAN PLATELET VOLUME 8.3 fL (7.4-10.4); MONOCYTES 8.3 % (2-11); NEUTROPHILS 40.8 % (40-80); PLATELET COUNT 410 10x3/uL (130-400); RBC 3.29 10x6/uL (4.20-6.10); RDW 27.4 % (11.5-14.5); WBC 19.9 10x3/uL (4.8-10.8)
[2016-08-03 07:07] LABS: ALBUMIN 4.1 g/dL (3.4-5.0); ALKALINE PHOSPHATASE 143 U/L (46-116); ALT (SGPT) 27 U/L (10-68); BILIRUBIN - TOTAL 3.74 mg/dL (0.2-1.3); CALC OSMOLALITY 268 mosm/kg (275-300); CARBON DIOXIDE 27.2 mmol/L (21.0-32.0); CHLORIDE - SERUM 102 mmol/L (98-107); CREATININE - SERUM 0.8 mg/dL (0.6-1.3); GLUCOSE 90 mg/dL (74-106); POTASSIUM - SERUM 3.3 mmol/L (3.5-5.1); PROTEIN - SERUM 7.8 g/dL (6.4-8.2); SODIUM 135 mmol/L (136-145); UREA NITROGEN 10 mg/dL (7-18); eGFR NON AFRICAN AMERICAN > 90 mL/min (90-120)
[2016-08-03 08:12] LABS: UDS - AMPHET NEGATIVE QUAL (NEGATIVE); UDS - BARB NEGATIVE QUAL (NEGATIVE); UDS - BENZO NEGATIVE QUAL (NEGATIVE); UDS - COCAINE NEGATIVE QUAL (NEGATIVE); UDS - METH NEGATIVE QUAL (NEGATIVE); UDS - OPIATE POSITIVE QUAL (NEGATIVE); UDS - PCP NEGATIVE QUAL (NEGATIVE); UDS - THC NEGATIVE QUAL (NEGATIVE)
[2016-08-03 08:15] LABS: APPEARANCE CLEAR (CLEAR); BILIRUBIN NEGATIVE (NEGATIVE); COLOR YELLOW (YELLOW); GLUCOSE NEGATIVE (NEGATIVE); KETONE NEGATIVE (NEGATIVE); LEUKOCYTE ESTERASE NEGATIVE (NEGATIVE); NITRITE NEGATIVE (NEGATIVE); PROTEIN NEGATIVE (NEGATIVE); UROBILINOGEN NORMAL (NORMAL)
== END 2016-08-03 11:40 | disposition home or self-care (01) ==
LOC: D.ER 04:35
PROVIDERS: Family Medicine
DX: D57.00 Hb-SS disease with crisis, unspecified (principal)

== ENCOUNTER 2017-10-03 05:14 | Emergency (ER) | payer MEDICAID ==
[~2017-10-03] VITALS: Ht 172.7 cm; Wt 52.3 kg
[2017-10-03 05:43] VITALS: Ht 172.7 cm; Wt 52.3 kg
[2017-10-03 06:56] LABS: BASOPHILS 0.5 % (0-2); EOSINOPHILS 2.4 % (0-7); HEMOGLOBIN 9.1 g/dL (13.5-17.5); IMMATURE GRANULOCYTES 1.7 % (0-5); LYMPHOCYTES 32.1 % (15-50); MCH 28.6 pg (26.0-34.0); MCHC 33.7 g/dL (31.0-37.0); MCV 84.9 fL (80.0-100.0); MEAN PLATELET VOLUME 8.6 fL (7.4-10.4); MONOCYTES 12.5 % (2-11); NEUTROPHILS 50.8 % (40-80); PLATELET COUNT 339 10x3/uL (130-400); RBC 3.18 10x6/uL (4.20-6.10); RDW 19.2 % (11.5-14.5); WBC 13.2 10x3/uL (4.8-10.8)
[2017-10-03 07:49] LABS: CALC OSMOLALITY 275 mosm/kg (275-300); CALCIUM 8.5 mg/dL (8.5-10.1); CARBON DIOXIDE 26.2 mmol/L (21.0-32.0); CHLORIDE - SERUM 107 mmol/L (98-107); CREATININE - SERUM 0.7 mg/dL (0.6-1.3); GLUCOSE 89 mg/dL (74-106); SODIUM 140 mmol/L (136-145); UREA NITROGEN 7 mg/dL (7-18); eGFR NON AFRICAN AMERICAN > 90 mL/min (90-120)
[2017-10-03 07:52] LABS: CREATINE KINASE 1215 UL (21-232); TROPONIN-I < 0.017 ng/mL (0.000-0.060)
[2017-10-03 07:55] LABS: CKMB 1.4 U/L (0.0-3.6)
[2017-10-03 10:03] VITALS: BP 148/82
== END 2017-10-04 14:11 | disposition home or self-care (01) ==
LOC: D.ER 05:14
PROVIDERS: Emergency Medicine
DX: D57.01 Hb-SS disease with acute chest syndrome (principal); F17.200 Nicotine dependence, unspecified, uncomplicated

== ENCOUNTER 2018-01-14 20:56 | Inpatient (IN) | payer MEDICAID ==
[~2018-01-14] VITALS: Ht 172.7 cm; Wt 55.0 kg
--- NOTE | ~2018-01-14 | MORECARE ---
CASE MANAGEMENT DISCHARGE SUMMARY PATIENT: MARI FITCH UNIT: [id number] ADM DATE: 01/15/18 AGE: 27 : 90 SEX: M ROOM/BED: D.0444 AUTHOR: GILMAR,DOC PHYSICIAN: REFERRING PHYSICIAN: EMI NESBITT MD DATE OF SERVICE: 01/17/18 Discharge Plan Patient Name: MARI FITCH Facility: [facility]:[place] : 1990 Planned Disposition: Home Anticipated Discharge Date: 01/18/18 Discharge Date: Expected LOS: 3 Initial Reviewer: [email or web address] Initial Review Date: 01/17/2018 Generated: 01/17/18 4:47 pm Comments DCP- Discharge Planning Updated by [email or web address]: Prabhjot Dwyer on 01/17/18 2:[address] Patient Name: MARI FITCH Admission Status: ER Accout number: [id number] Admission Date: 01-15-2018 : 1990 Admission Diagnosis:HB-SS DISEASE WITH CRISIS, UNSPECIFIED Attending: EMI NESBITT Current LOS: 2 Anticipated DC Date: 01-18-2018 Planned Disposition: Home Primary Insurance: MEDICAID [place] Discharge Planning Comments: CM MET WITH PT IN ROOM TO DISCUSS DISCHARGE PLANNING AND NEEDS. PT REPORTS LIVING AT HOME INDEPENDENTLY WITH FRIENDS. PT HAS NO MEDICAL EQUIPMENT AND NO OUTSIDE SERVICES ASSISTING IN THE HOME. CM DISCUSSED AVAILABILITY OF HOME HEALTH, REHAB SERVICES AND MEDICAL EQUIPMENT. PT DENIES DISCHARGE NEEDS, REPORTS HIS FRIEND WILL PICK HIM UP FOR DISCHARGE HOME. PT HAS NO PRIMARY CARE DOCTOR, CM PROVIDED [facility] INFORMATION, INSTRUCTED PT ON HOW TO CALL AND SCHEDULE APPOINTMENT FOR MEETING TO DISCUSS POSSIBILITY OF [facility] PRIMARY CARE PHYSICIANS; PT HAS SMART PHONE IN ROOM THAT IS WORKING AT TIME OF CM CONSULT. PT PLANS TO DISCHARGE HOME WITH ADULT FRIENDS. FRIEND TO HEAT AND FROST INSULATOR HELPER AT DISCHARGE. PT DENIES DISHCHARGE NEEDS AT THIS TIME. CM TO FOLLOW AND ASSIST NEEDED. Personal Insurance Advisor: Prabhjot Dwyer DCPIA - Discharge Planning Initial Assessment Updated by [email or web address]: Prabhjot Dwyer on 01/17/18 3:35 pm * Is the patient Alert and Oriented? Yes * How many steps to enter\exit or inside your home? 4-O / 12-I * PCP NONE [facility]FORMATION PROVIDED * Pharmacy [facility] * Preadmission Environment Home with Family * ADLs Independent * Equipment None * Other Equipment NO MEDICAL EQUIPMENT PROVIDER PREFERENCE * List name and contact numbers for known caregivers / representatives who currently or will assist patient after discharge: IDANIA LAO, FRIEND, * Verbal permission to speak to the caregivers and representatives has been obtained from the patient. N/A * Community resources currently utilized None * Please name any agencies selected above. NONE * Additional services required to return to the preadmission environment? No * Can the patient safely return to the preadmission environment? Yes * Has this patient been hospitalized within the prior 30 days at any hospital? No Last DP export: 01/17/18 2:37 Patient Name: MARI FITCH Page [id number] at 1547 All edits/amendments must be made on the electronic document DICTATION DATE: 01/17/181545 CHILD WELFARE CONSULTANT: JOSÉ MIGUEL 01/17/181545 RPT#: [id number] DC DATE: STATUS: ADM IN [facility] [address] [place] [address] END OF REPORT
--- NOTE | ~2018-01-14 | MORECARE ---
CASE MANAGEMENT DISCHARGE SUMMARY PATIENT: MARI FITCH UNIT: [id number] ADM DATE: 01/15/18 AGE: 27 : 90 SEX: M ROOM/BED: D.2451 AUTHOR: GILMAR,DOC PHYSICIAN: REFERRING PHYSICIAN: EMI NESBITT MD DATE OF SERVICE: 01/21/18 Discharge Plan Patient Name: MARI FITCH Facility: [facility]:[place] : 1990 Planned Disposition: Home Anticipated Discharge Date: 01/18/18 Discharge Date: 01/18/2018 Expected LOS: 3 Initial Reviewer: [email or web address] Initial Review Date: 01/17/2018 Generated: 01/21/18 10:16 am Comments DCP- Discharge Planning Updated by [email or web address]: Prabhjot Dwyer on 01/17/18 2:[address] Patient Name: MARI FITCH Admission Status: ER Accout number: [id number] Admission Date: 01-15-2018 : 1990 Admission Diagnosis:HB-SS DISEASE WITH CRISIS, UNSPECIFIED Attending: EMI NESBITT Current LOS: 2 Anticipated DC Date: 01-18-2018 Planned Disposition: Home Primary Insurance: MEDICAID [place] Discharge Planning Comments: CM MET WITH PT IN ROOM TO DISCUSS DISCHARGE PLANNING AND NEEDS. PT REPORTS LIVING AT HOME INDEPENDENTLY WITH FRIENDS. PT HAS NO MEDICAL EQUIPMENT AND NO OUTSIDE SERVICES ASSISTING IN THE HOME. CM DISCUSSED AVAILABILITY OF HOME HEALTH, REHAB SERVICES AND MEDICAL EQUIPMENT. PT DENIES DISCHARGE NEEDS, REPORTS HIS FRIEND WILL PICK HIM UP FOR DISCHARGE HOME. PT HAS NO PRIMARY CARE DOCTOR, CM PROVIDED [facility] INFORMATION, INSTRUCTED PT ON HOW TO CALL AND SCHEDULE APPOINTMENT FOR MEETING TO DISCUSS POSSIBILITY OF [facility] PRIMARY CARE PHYSICIANS; PT HAS SMART PHONE IN ROOM THAT IS WORKING AT TIME OF CM CONSULT. PT PLANS TO DISCHARGE HOME WITH ADULT FRIENDS. FRIEND TO COMPUTER OPERATIONS SUPERVISOR AT DISCHARGE. PT DENIES DISHCHARGE NEEDS AT THIS TIME. CM TO FOLLOW AND ASSIST NEEDED. Eyeglass Frame Truer: Prabhjot Dwyer DCPIA - Discharge Planning Initial Assessment Updated by [id number]: Prabhjot Dwyer on 01/17/18 3:35 pm * Is the patient Alert and Oriented? Yes * How many steps to enter\exit or inside your home? 4-O / 12-I * PCP NONE [facility] PROVIDED * Pharmacy [facility] * Preadmission Environment Home with Family * ADLs Independent * Equipment None * Other Equipment NO MEDICAL EQUIPMENT PROVIDER PREFERENCE * List name and contact numbers for known caregivers / representatives who currently or will assist patient after discharge: IDANIA LAO, FRIEND, * Verbal permission to speak to the caregivers and representatives has been obtained from the patient. N/A * Community resources currently utilized None * Please name any agencies selected above. NONE * Additional services required to return to the preadmission environment? No * Can the patient safely return to the preadmission environment? Yes * Has this patient been hospitalized within the prior 30 days at any hospital? No Last DP export: 01/17/18 2:47 Patient Name: MARI FITCH Page [phone] at 0916 All edits/amendments must be made on the electronic document DICTATION DATE: 01/21/18915 EXCELLENCE SPECIALIST: JOSÉ MIGUEL 01/21/18915 RPT#: [id number] DC DATE:01/18/18 STATUS: DIS IN [facility] [address] [place] [address] END OF REPORT
--- NOTE | ~2018-01-14 | MORECARE ---
CASE MANAGEMENT DISCHARGE SUMMARY PATIENT: MARI FITCH UNIT: [id number] ADM DATE: 01/15/18 AGE: 27 : 90 SEX: M ROOM/BED: D.2128 AUTHOR: MADHU SCHAFER PHYSICIAN: REFERRING PHYSICIAN: EMI NESBITT MD DATE OF SERVICE: 01/17/18 Discharge Plan Patient Name: MARI FITCH [facility] : 1990 Planned Disposition: Home Anticipated Discharge Date: 01/18/18 Discharge Date: Expected LOS: 3 Initial Reviewer: [email or web address] Initial Review Date: 01/17/2018 Generated: 01/17/18 4:37 pm DCPIA - Discharge Planning Initial Assessment Updated by [email or web address]: Prabhjot Dwyer on 01/17/18 3:35 pm * Is the patient Alert and Oriented? Yes * How many steps to enter\exit or inside your home? 4-O / 12-I * PCP NONE [facility] PROVIDED * Pharmacy [facility] * Preadmission Environment Home with Family * ADLs Independent * Equipment None * Other Equipment NO MEDICAL EQUIPMENT PROVIDER PREFERENCE * List name and contact numbers for known caregivers / representatives who currently or will assist patient after discharge: IDANIA LAO, FRIEND, * Verbal permission to speak to the caregivers and representatives has been obtained from the patient. N/A * Community resources currently utilized None * Please name any agencies selected above. NONE * Additional services required to return to the preadmission environment? No * Can the patient safely return to the preadmission environment? Yes * Has this patient been hospitalized within the prior 30 days at any hospital? No Patient Name: MARI FITCH Page [phone] at 1537 All edits/amendments must be made on the electronic document DICTATION DATE: 01/17/181536 ART APPRAISER: JOSÉ MIGUEL 01/17/181536 RPT#: [id number] DC DATE: STATUS: ADM IN [facility] [address] [place] [address] END OF REPORT
[2018-01-14 21:37] LABS: WBC 23.6 10x3/uL (4.8-10.8)
[2018-01-14 21:38] LABS: HEMOGLOBIN 7.4 g/dL (13.5-17.5); MCH 27.7 pg (26.0-34.0); MCHC 33.6 g/dL (31.0-37.0); MCV 82.4 fL (80.0-100.0); MEAN PLATELET VOLUME 8.8 fL (7.4-10.4); PLATELET COUNT 225 10x3/uL (130-400); RBC 2.67 10x6/uL (4.20-6.10); RDW 19.9 % (11.5-14.5)
[2018-01-14 21:57] LABS: BASOPHILS 0.2 % (0-2); EOSINOPHILS 0.3 % (0-7); IMMATURE GRANULOCYTES 0.5 % (0-5); LYMPHOCYTES 31.1 % (15-50); MONOCYTES 12.7 % (2-11); NEUTROPHILS 55.2 % (40-80)
[2018-01-14 22:04] LABS: ALBUMIN 4.2 g/dL (3.4-5.0); ALKALINE PHOSPHATASE 151 U/L (46-116); ALT (SGPT) 125 U/L (10-68); BILIRUBIN - TOTAL 6.87 mg/dL (0.2-1.3); CALC OSMOLALITY 281 mosm/kg (275-300); CALCIUM 8.9 mg/dL (8.5-10.1); CARBON DIOXIDE 25.7 mmol/L (21.0-32.0); CHLORIDE - SERUM 103 mmol/L (98-107); CREATININE - SERUM 0.8 mg/dL (0.6-1.3); GLUCOSE 130 mg/dL (74-106); POTASSIUM - SERUM 3.6 mmol/L (3.5-5.1); PROTEIN - SERUM 7.4 g/dL (6.4-8.2); SODIUM 141 mmol/L (136-145); UREA NITROGEN 10 mg/dL (7-18); eGFR NON AFRICAN AMERICAN > 90 mL/min (90-120)
[2018-01-14 22:06] LABS: PLATELET ESTIMATE DECREASED; PLATELET MORPHOLOGY NORMAL PLT MORPH
[2018-01-14 22:08] LABS: ELLIPTOCYTES OCC; HYPOCHROMASIA 3+; SICKLE CELLS OCC; TARGET CELLS 1+
[2018-01-14 22:17] VITALS: BP 143/85
[2018-01-14 23:31] VITALS: BP 124/82
[2018-01-15 00:14] VITALS: BP 148/96; BMI 18.2
[2018-01-15 04:00] VITALS: BP 131/82
[2018-01-15 06:14] LABS: ALKALINE PHOSPHATASE 150 U/L (46-116); ALT (SGPT) 118 U/L (10-68); BILIRUBIN - TOTAL 8.98 mg/dL (0.2-1.3); CALCIUM 9.1 mg/dL (8.5-10.1); CARBON DIOXIDE 27.9 mmol/L (21.0-32.0); CHLORIDE - SERUM 106 mmol/L (98-107); CREATININE - SERUM 0.6 mg/dL (0.6-1.3); GLUCOSE 113 mg/dL (74-106); PROTEIN - SERUM 7.4 g/dL (6.4-8.2); SODIUM 141 mmol/L (136-145); eGFR NON AFRICAN AMERICAN > 90 mL/min (90-120)
[2018-01-15 06:15] LABS: CALC OSMOLALITY 279 mosm/kg (275-300); POTASSIUM - SERUM 4.2 mmol/L (3.5-5.1); UREA NITROGEN 7 mg/dL (7-18)
[2018-01-15 06:17] LABS: BASOPHILS 0.1 % (0-2); EOSINOPHILS 0.2 % (0-7); HEMATOCRIT 24.3 % (42.0-54.0); HEMOGLOBIN 8.4 g/dL (13.5-17.5); IMMATURE GRANULOCYTES 0.7 % (0-5); LYMPHOCYTES 6.9 % (15-50); MCH 28.5 pg (26.0-34.0); MCHC 34.6 g/dL (31.0-37.0); MCV 82.4 fL (80.0-100.0); MEAN PLATELET VOLUME 8.8 fL (7.4-10.4); MONOCYTES 14.9 % (2-11); NEUTROPHILS 77.2 % (40-80); PLATELET COUNT 194 10x3/uL (130-400); RBC 2.95 10x6/uL (4.20-6.10); RDW 18.5 % (11.5-14.5); WBC 25.6 10x3/uL (4.8-10.8)
[2018-01-15 07:49] VITALS: BP 132/88
[2018-01-15 11:21] VITALS: BP 140/98
[2018-01-15 14:03] LABS: AMYLASE - SERUM 24 U/L (25-115); LIPASE 56 U/L (73-393)
[2018-01-15 15:49] VITALS: BP 137/77
[2018-01-15 20:00] VITALS: BP 149/87
[2018-01-16 01:10] VITALS: BP 149/87
[2018-01-16 06:06] VITALS: BP 125/77
[2018-01-16 06:53] LABS: BASOPHILS 0.2 % (0-2); EOSINOPHILS 0.4 % (0-7); HEMATOCRIT 22.7 % (42.0-54.0); HEMOGLOBIN 7.8 g/dL (13.5-17.5); IMMATURE GRANULOCYTES 0.5 % (0-5); LYMPHOCYTES 15.8 % (15-50); MCH 27.9 pg (26.0-34.0); MCHC 34.4 g/dL (31.0-37.0); MCV 81.1 fL (80.0-100.0); MEAN PLATELET VOLUME 8.5 fL (7.4-10.4); MONOCYTES 14.9 % (2-11); NEUTROPHILS 68.2 % (40-80); PLATELET COUNT 184 10x3/uL (130-400); RDW 18.9 % (11.5-14.5); WBC 23.9 10x3/uL (4.8-10.8)
[2018-01-16 07:26] LABS: ALBUMIN 3.5 g/dL (3.4-5.0); ALKALINE PHOSPHATASE 125 U/L (46-116); BILIRUBIN - TOTAL 7.73 mg/dL (0.2-1.3); CALCIUM 9.2 mg/dL (8.5-10.1); CARBON DIOXIDE 27.7 mmol/L (21.0-32.0); CHLORIDE - SERUM 104 mmol/L (98-107); CREATININE - SERUM 0.7 mg/dL (0.6-1.3); GLUCOSE 105 mg/dL (74-106); MAGNESIUM - SERUM 1.9 mg/dL (1.8-2.4); PHOSPHOROUS 2.4 mg/dL (2.5-4.9); POTASSIUM - SERUM 3.8 mmol/L (3.5-5.1); PROTEIN - SERUM 7.2 g/dL (6.4-8.2); SODIUM 140 mmol/L (136-145); eGFR NON AFRICAN AMERICAN > 90 mL/min (90-120)
[2018-01-16 07:29] LABS: ALT (SGPT) 83 U/L (10-68); CALC OSMOLALITY 275 mosm/kg (275-300); UREA NITROGEN 5 mg/dL (7-18)
[2018-01-16 08:24] VITALS: BP 126/73
[2018-01-16 11:27] VITALS: BP 129/80
[2018-01-16 12:17] LABS: HEPATITIS C ANTIBODY <0.1 (0.0-0.9)
[2018-01-16 15:35] VITALS: BP 118/85
[2018-01-16 15:55] LABS: APPEARANCE CLEAR (CLEAR); BILIRUBIN NEGATIVE (NEGATIVE); COLOR DK YELLOW (YELLOW); GLUCOSE NEGATIVE (NEGATIVE); KETONE NEGATIVE (NEGATIVE); NITRITE NEGATIVE (NEGATIVE); PROTEIN NEGATIVE (NEGATIVE); SPECIFIC GRAVITY 1.015 (1.005-1.020)
[2018-01-16 15:59] LABS: UDS - AMPHET NEGATIVE QUAL (NEGATIVE); UDS - BARB NEGATIVE QUAL (NEGATIVE); UDS - BENZO NEGATIVE QUAL (NEGATIVE); UDS - COCAINE NEGATIVE QUAL (NEGATIVE); UDS - OPIATE POSITIVE QUAL (NEGATIVE); UDS - PCP NEGATIVE QUAL (NEGATIVE); UDS - THC NEGATIVE QUAL (NEGATIVE)
[2018-01-16 20:00] VITALS: BP 138/88
[2018-01-17 05:56] LABS: BASOPHILS 0.1 % (0-2); EOSINOPHILS 0.7 % (0-7); HEMATOCRIT 27.4 % (42.0-54.0); HEMOGLOBIN 9.6 g/dL (13.5-17.5); IMMATURE GRANULOCYTES 0.4 % (0-5); LYMPHOCYTES 25.6 % (15-50); MCH 28.2 pg (26.0-34.0); MCV 80.6 fL (80.0-100.0); MEAN PLATELET VOLUME 9.1 fL (7.4-10.4); MONOCYTES 15.4 % (2-11); NEUTROPHILS 57.8 % (40-80); PLATELET COUNT 200 10x3/uL (130-400); RDW 17.3 % (11.5-14.5); WBC 22.5 10x3/uL (4.8-10.8)
[2018-01-17 05:57] VITALS: BP 128/85
[2018-01-17 06:03] LABS: ALKALINE PHOSPHATASE 110 U/L (46-116); ALT (SGPT) 67 U/L (10-68); BILIRUBIN - TOTAL 4.41 mg/dL (0.2-1.3); CALC OSMOLALITY 277 mosm/kg (275-300); CALCIUM 8.5 mg/dL (8.5-10.1); CARBON DIOXIDE 30.2 mmol/L (21.0-32.0); CHLORIDE - SERUM 103 mmol/L (98-107); CREATININE - SERUM 0.7 mg/dL (0.6-1.3); GLUCOSE 106 mg/dL (74-106); POTASSIUM - SERUM 3.8 mmol/L (3.5-5.1); PROTEIN - SERUM 6.9 g/dL (6.4-8.2); SODIUM 140 mmol/L (136-145); eGFR NON AFRICAN AMERICAN > 90 mL/min (90-120)
[2018-01-17 06:19] LABS: PHOSPHOROUS 3.2 mg/dL (2.5-4.9); UREA NITROGEN 9 mg/dL (7-18)
[2018-01-17 08:22] VITALS: BP 138/74
[2018-01-17 09:54] VITALS: BP 138/74
[2018-01-17 11:42] VITALS: BP 130/78
[2018-01-17 12:26] VITALS: Ht 172.7 cm; Wt 55.0 kg
[2018-01-17 15:47] VITALS: BP 133/87
[2018-01-17 20:49] VITALS: BP 133/90
[2018-01-18 01:18] VITALS: BP 146/104
[2018-01-18 05:57] LABS: ALKALINE PHOSPHATASE 107 U/L (46-116); ALT (SGPT) 70 U/L (10-68); BILIRUBIN - TOTAL 3.46 mg/dL (0.2-1.3); CALC OSMOLALITY 276 mosm/kg (275-300); CALCIUM 9.1 mg/dL (8.5-10.1); CARBON DIOXIDE 30.2 mmol/L (21.0-32.0); CHLORIDE - SERUM 103 mmol/L (98-107); CREATININE - SERUM 0.7 mg/dL (0.6-1.3); GLUCOSE 107 mg/dL (74-106); MAGNESIUM - SERUM 2.2 mg/dL (1.8-2.4); PHOSPHOROUS 3.6 mg/dL (2.5-4.9); POTASSIUM - SERUM 3.9 mmol/L (3.5-5.1); SODIUM 140 mmol/L (136-145); UREA NITROGEN 8 mg/dL (7-18); eGFR NON AFRICAN AMERICAN > 90 mL/min (90-120)
[2018-01-18 06:02] LABS: HEMATOCRIT 27.5 % (42.0-54.0); HEMOGLOBIN 9.2 g/dL (13.5-17.5); LYMPHOCYTES 24.7 % (15-50); MCH 27.7 pg (26.0-34.0); MCHC 33.5 g/dL (31.0-37.0); MEAN PLATELET VOLUME 8.5 fL (7.4-10.4); NEUTROPHILS 56.4 % (40-80); PLATELET COUNT 229 10x3/uL (130-400); RBC 3.32 10x6/uL (4.20-6.10); RDW 18.8 % (11.5-14.5); WBC 19.9 10x3/uL (4.8-10.8)
[2018-01-18 06:08] LABS: MCV 82.8 fL (80.0-100.0)
[2018-01-18 06:15] VITALS: BP 108/74
[2018-01-18 08:00] VITALS: BP 118/81
[2018-01-18 11:21] VITALS: BP 126/80
[2018-01-18] MEDS ORDERED: PROTONIX40 MG PO (11:27)
[2018-01-18] MEDS ORDERED: HYDROXYUREA500 MG PO (11:27)
[2018-01-18 14:20] LABS: HGB - A 19.3 % (96.4-98.8); HGB - A2 4.6 % (1.8-3.2); HGB - F 2.2 % (0.0-2.0); HGB - INTERPRETATION Note: (()); HGB - S 73.9 % (0.0); HGB - SOLUBILITY Positive (Negative)
[2018-01-18 14:49] VITALS: BP 130/78
== END 2018-01-18 15:50 | disposition home or self-care (01) | DRG 812 ==
LOC: D.ER 20:56 → D.M2 23:40 → OBSVTIME 23:40 → D.M2 01-15 11:26
PROVIDERS: Family Medicine; Internal Medicine Hematology & Oncology; Internal Medicine Nephrology
DX: D57.00 Hb-SS disease with crisis, unspecified (principal); F33.1 Major depressive disorder, recurrent, moderate; Q89.01 Asplenia (congenital); R74.0 Nonspecific elevation of levels of transaminase and lactic acid dehydrogenase [LDH]

== ENCOUNTER 2018-05-28 12:44 | Inpatient (IN) | payer MEDICAID ==
[~2018-05-28] VITALS: Ht 172.7 cm; Wt 50.8 kg
[~2018-05-28 12:44] MED LIST changes: +HYDROXYUREA500 MG PO; +PROTONIX40 MG PO
[2018-05-28 13:31] LABS: HEMATOCRIT 28.3 % (42.0-54.0); HEMOGLOBIN 9.5 g/dL (13.5-17.5); MCH 26.8 pg (26.0-34.0); MCHC 33.6 g/dL (31.0-37.0); MCV 79.9 fL (80.0-100.0); MEAN PLATELET VOLUME 8.8 fL (7.4-10.4); RBC 3.54 10x6/uL (4.20-6.10); RDW 24.1 % (11.5-14.5); WBC 16.5 10x3/uL (4.8-10.8)
[2018-05-28 13:55] LABS: PLATELET COUNT 394 10x3/uL (130-400)
[2018-05-28 14:30] LABS: BASOPHILS 1 % (0-2); EOSINOPHILS 4 % (0-7); LYMPHOCYTES 27 % (15-50); MONOCYTES 14 % (2-11); NEUTROPHILS 51 % (40-80); PLATELET ESTIMATE NORMAL
[2018-05-28 14:31] LABS: ANISOCYTOSIS OCC; POLYCHROMASIA OCC
[2018-05-28 14:32] LABS: ALBUMIN 4.7 g/dL (3.4-5.0); ALKALINE PHOSPHATASE 136 U/L (46-116); ALT (SGPT) 24 U/L (10-68); CALC OSMOLALITY 278 mosm/kg (275-300); CALCIUM 9.1 mg/dL (8.5-10.1); CARBON DIOXIDE 24.5 mmol/L (21.0-32.0); CHLORIDE - SERUM 104 mmol/L (98-107); CREATININE - SERUM 0.8 mg/dL (0.6-1.3); GLUCOSE 86 mg/dL (74-106); POTASSIUM - SERUM 4.4 mmol/L (3.5-5.1); PROTEIN - SERUM 8.4 g/dL (6.4-8.2); SODIUM 141 mmol/L (136-145); UREA NITROGEN 11 mg/dL (7-18); eGFR NON AFRICAN AMERICAN > 90 mL/min (90-120)
[2018-05-28 14:33] LABS: SICKLE CELLS 1+
[2018-05-28 14:37] VITALS: BP 145/82
[2018-05-28 14:59] LABS: APPEARANCE CLEAR (CLEAR); BILIRUBIN NEGATIVE (NEGATIVE); COLOR YELLOW (YELLOW); GLUCOSE NEGATIVE (NEGATIVE); KETONE NEGATIVE (NEGATIVE); NITRITE NEGATIVE (NEGATIVE); PROTEIN NEGATIVE (NEGATIVE); UROBILINOGEN NORMAL (NORMAL)
[2018-05-28 15:02] LABS: RED CELLS - URINE OCC /hpf (0-5); WHITE CELLS - URINE 0-5 /hpf (0-5)
[2018-05-28 15:03] LABS: BACTERIA FEW /hpf (NONE SEEN)
--- NOTE | 2018-05-28 16:30 | NUR ---
PATIENT ADMITTED FROM ER VIA WHEELCHAIR FOR SICLE CELL CRISIS. DR FU IS ADMITTING DOCTOR. WILL CONTINUE TO MONITOR. IV IN RT. FOREARM IS SALINE LOCKED.
[2018-05-28 16:54] VITALS: BP 136/86
--- NOTE | 2018-05-28 19:45 | NUR ---
RESUMING CARE. PT A&O BREATH SOUNDS EVEN UNLABORED , PT HAD RT FA IV SL , PT C/O PAIN , PAIN BEDS WERE GIVEN AT 1829 ADVISED PT NOTHING ELSE WAS DUE UNTIL 2229, PT WAS VERY AGITATED , CL IN REACH WILL CONT TO MONITOR
[2018-05-28 20:00] VITALS: BP 132/75
[2018-05-28] MEDS ORDERED: IBUPROFEN400 MG PO (22:57)
[2018-05-28 23:03] VITALS: BP 132/75; BMI 18.9
[2018-05-29] VITALS: BP 114/75
[2018-05-29 04:00] VITALS: BP 122/64
[2018-05-29 08:26] LABS: HEMATOCRIT 26.2 % (42.0-54.0); HEMOGLOBIN 8.6 g/dL (13.5-17.5); MCH 26.3 pg (26.0-34.0); MCHC 32.8 g/dL (31.0-37.0); MCV 80.1 fL (80.0-100.0); MEAN PLATELET VOLUME 8.5 fL (7.4-10.4); PLATELET COUNT 256 10x3/uL (130-400); RBC 3.27 10x6/uL (4.20-6.10); RDW 23.8 % (11.5-14.5); WBC 27.3 10x3/uL (4.8-10.8)
--- NOTE | 2018-05-29 08:30 | NUR ---
SHIFT ASSESSMENT COMPLETED. LYING IN BED ON ABDOMIN WITH EYES CLOSED. AROUSES TO VERBAL REQUEST. HAS BEEN MEAN AND ARGUES WITH STAFF.
[2018-05-29 08:35] LABS: ALBUMIN 4.4 g/dL (3.4-5.0); ALKALINE PHOSPHATASE 122 U/L (46-116); CALCIUM 8.9 mg/dL (8.5-10.1); CARBON DIOXIDE 27.3 mmol/L (21.0-32.0); CHLORIDE - SERUM 103 mmol/L (98-107); CREATININE - SERUM 0.6 mg/dL (0.6-1.3); SODIUM 140 mmol/L (136-145); UREA NITROGEN 9 mg/dL (7-18); eGFR NON AFRICAN AMERICAN > 90 mL/min (90-120)
[2018-05-29 08:36] LABS: ALT (SGPT) 33 U/L (10-68); CALC OSMOLALITY 279 mosm/kg (275-300); GLUCOSE 131 mg/dL (74-106)
[2018-05-29 09:12] LABS: LYMPHOCYTES 13 % (15-50); MONOCYTES 13 % (2-11); NEUTROPHILS 70 % (40-80); PLATELET ESTIMATE NORMAL; POLYCHROMASIA OCC; SICKLE CELLS 1+
[2018-05-29 09:27] VITALS: BP 123/84
--- NOTE | 2018-05-29 16:45 | NUR ---
REFUSED SCD'S PER ZARA/RN
--- NOTE | 2018-05-29 17:55 | NUR ---
PATIENT SLEPT ALL DAY LONG. REFUSED ALL TRAYS OF FOOD. AWAKENS BRIEFLY, BUT HAS NOT ASKED FOR ANY PAIN MEDICATIONS TODAY.
--- NOTE | 2018-05-29 20:00 | NUR ---
LYING ON RT SIDE IN BED. AWAKENED FOR V/S. DOESNT ANSWER QUESTION OR SPEAK MUCH WHEN SPOKEN TO. DOESNT LIKE TO BE BOTHERED. NONCOMPLIANT WITH TX PLAN. REFUSES TO WEAR TELEMETRY. REFUSES IV FLUIDS. NOT WEARING O2. RESP EVEN AND NONLABORED. BBS CTA. DENIES PAIN. REFUSES TO WEAR SCDS. SALINE LOCK NOTED TO RT FOREARM. UNCOOPERATIVE. EXPLAINED THAT U/A IS NEEDED. PT NOT RECEPTIVE. CL IN REACH.
[2018-05-29 20:46] VITALS: BP 101/65
--- NOTE | 2018-05-29 20:57 | NUR ---
AWAKENED FOR MED PASS. KEEPS EYES CLOSED AND IGNORES STAFF. REPEATED THAT MEDS WERE DUE AND HE NEEDED TO TAKE THEM IN ORDER TO GET BETTER. HE OPENS EYES AND SAYS," TAKE ALL OF THEM. I'M GONNA KILL EVERYONE." ASKED PT WHO HE WAS GOING TO KILL AND HE SAID,"I'M GONNA KILL THEM ALL EXCEPT FOR YOU." PT THEN TOOK MEDS. OFFERED FOOD WITH MED RECOMMENDED BUT HE REFUSED TO EAT. PT APPEARS TO HAVE PSYCH ISSUES. PT THEN COVERED UP AND ROLLED OVER. PT HASNT BEEN AGRESSIVE OR DISRUPTIVE SO FAR. WILL CONT TO MONITOR.
[2018-05-30] VITALS (7 sets, daily range): BP systolic 114–141; BP diastolic 56–79; Ht 172.7 cm; Wt 50.8 kg
--- NOTE | 2018-05-30 00:03 | NUR ---
HAS BEEN LYING IN BED RESTING SO FAR THIS SHIFT. EYES CLOSED. RESP EVEN AND NONLABORED. NO DISTRESS. CL IN REACH.
--- NOTE | 2018-05-30 00:30 | NUR ---
SOFTWARE SECURITY CONSULTANT ATTEMPTED TO GET V/S BUT PT REFUSED TO LET HER.
--- NOTE | 2018-05-30 04:55 | NUR ---
V/S TAKEN PER PATTERN ATTENDANT. REQUESTED PAIN MED. MEDICATED WITH STADOL IV FOR C/O PAIN IN LEGS AND BACK. ENCOURAGED TO DRINK FLUIDS AND EAT SINCE HE HAS REFUSED IV FLUIDS. CONSUMED ICE CREAM AND DRANK 2 GLASSES OF WATER. O2 APPLIED @ 1L/NC AT THIS TIME. CALMER AND MORE COOPERATIVE. CL IN REACH.
[2018-05-30 06:45] LABS: ALKALINE PHOSPHATASE 113 U/L (46-116); ALT (SGPT) 33 U/L (10-68); BILIRUBIN - TOTAL 4.28 mg/dL (0.2-1.3); CALC OSMOLALITY 280 mosm/kg (275-300); CALCIUM 9.1 mg/dL (8.5-10.1); CARBON DIOXIDE 28.7 mmol/L (21.0-32.0); CHLORIDE - SERUM 102 mmol/L (98-107); CREATININE - SERUM 0.7 mg/dL (0.6-1.3); GLUCOSE 152 mg/dL (74-106); MAGNESIUM - SERUM 2.1 mg/dL (1.8-2.4); POTASSIUM - SERUM 3.9 mmol/L (3.5-5.1); PROTEIN - SERUM 7.9 g/dL (6.4-8.2); SODIUM 140 mmol/L (136-145); UREA NITROGEN 10 mg/dL (7-18); eGFR NON AFRICAN AMERICAN > 90 mL/min (90-120)
[2018-05-30 06:56] LABS: HEMOGLOBIN 8.5 g/dL (13.5-17.5); MCH 26.3 pg (26.0-34.0); MCHC 32.7 g/dL (31.0-37.0); MCV 80.5 fL (80.0-100.0); MEAN PLATELET VOLUME 8.5 fL (7.4-10.4); PLATELET COUNT 184 10x3/uL (130-400); RBC 3.23 10x6/uL (4.20-6.10); WBC 24.4 10x3/uL (4.8-10.8)
--- NOTE | 2018-05-30 07:45 | NUR ---
ASSESSMENT COMPLETE. O2 1L NC IN USE. COMPLAINING OF MUSCLE SORENESS IN LEFT SHOULDER. DENIES ANY NEEDS AT THIS TIME.
[2018-05-30 08:23] LABS: LYMPHOCYTES 15 % (15-50); MONOCYTES 18 % (2-11); NEUTROPHILS 62 % (40-80); PLATELET ESTIMATE NORMAL
[2018-05-30 08:24] LABS: CRENATED CELLS OCC; POIKILOCYTOSIS OCC; SICKLE CELLS 1+
--- NOTE | 2018-05-30 09:00 | NUR ---
STADOL SCANNED BY FLAQUITA FULLER RN. SL INFILTRATED. WILL GIVE DOSE WHEN IV ACCESS IS OBTAINED.
--- NOTE | 2018-05-30 09:37 | NUR ---
IV TO R FA WITH SWELLING AND TENDERNESS NOTED. IV REMOVED. UNABLE TO RESITE IV X 2 ATTEMPTS.
--- NOTE | 2018-05-30 10:00 | NUR ---
IV SITED TO R HAND WITH 22 GUAGE BY HOLLIS JARA RN. STADOL GIVEN SLOW IVP. IVF CONNECTED-NS INFUSING AT 125 CC/HR VIA PUMP.
--- NOTE | 2018-05-30 12:30 | NUR ---
RESTING QUIETLY ON LEFT SIDE. RESP EVEN,NONLABORED.
--- NOTE | 2018-05-30 14:10 | NUR ---
IV TO RIGHT HAND LEAKING. IV REMOVED. CATHETER TIP INTACT. IV RESITED TO L FA WITH 22 GUAGE X 1 ATTEMPT BY TYREE BUTCHER RN.
--- NOTE | 2018-05-30 17:28 | NUR ---
COMPLAINING OF "STOMACH FEELING SOUR." ZOFRAN GIVEN SLOW IVP.
--- NOTE | 2018-05-30 18:44 | NUR ---
STADOL GIVEN SLOW IVP FOR COMPLAINT OF PAIN.
--- NOTE | 2018-05-30 20:35 | NUR ---
THE PATIENT WAS LYING IN BED AND WATCHING TEOLEVISON WHEN STAFF ENTERED HIS ROOM. BED IS IN THE LOW POSITION WITH SIDERAILS X2 AND CALL LIGHT WITHIN REACH. THE PATIENT WAS EDUCATED ON THE USE OF A CALL LIGHT AND DEMONSTRATES UNDERSTANDING VIA TEACHBACK METHOD. THE PATIENT APPEARS COMFORTABLE WITH NO QUESTIONS OR CONCERNS AT THIS TIME.
--- NOTE | 2018-05-31 03:22 | NUR ---
THE PATIENT APPEARS TO BE SLEEPING WITH SIDERAILS X2 AND CALL LIGHT WITHIN REACH.
[2018-05-31 04:30] VITALS: BP 175/81
--- NOTE | 2018-05-31 07:30 | NUR ---
PT LYING IN BED WATCHING TV. CALL LIGHT IN REACH. DENIES NEEDS OR PAIN. BED IN LOW. RESP EVEN AND UNLABORED. WILL CONTINUE TO MONITOR.
[2018-05-31 07:39] VITALS: BP 107/56
[2018-05-31 07:39] LABS: ALBUMIN 3.7 g/dL (3.4-5.0); ALKALINE PHOSPHATASE 99 U/L (46-116); ALT (SGPT) 34 U/L (10-68); BILIRUBIN - TOTAL 3.25 mg/dL (0.2-1.3); CALCIUM 8.7 mg/dL (8.5-10.1); CARBON DIOXIDE 27.1 mmol/L (21.0-32.0); CHLORIDE - SERUM 104 mmol/L (98-107); CREATININE - SERUM 0.6 mg/dL (0.6-1.3); MAGNESIUM - SERUM 2.1 mg/dL (1.8-2.4); PROTEIN - SERUM 7.6 g/dL (6.4-8.2); SODIUM 141 mmol/L (136-145); UREA NITROGEN 9 mg/dL (7-18); eGFR NON AFRICAN AMERICAN > 90 mL/min (90-120)
[2018-05-31 07:42] LABS: CALC OSMOLALITY 279 mosm/kg (275-300); GLUCOSE 101 mg/dL (74-106); POTASSIUM - SERUM 4.5 mmol/L (3.5-5.1)
[2018-05-31 08:29] LABS: HEMATOCRIT 20.6 % (42.0-54.0); MCH 26.3 pg (26.0-34.0); MCV 79.5 fL (80.0-100.0); MEAN PLATELET VOLUME 8.9 fL (7.4-10.4); RBC 2.59 10x6/uL (4.20-6.10); RDW 21.5 % (11.5-14.5); WBC 16.5 10x3/uL (4.8-10.8)
[2018-05-31 08:30] LABS: HEMOGLOBIN 6.8 g/dL (13.5-17.5); PLATELET COUNT 121 10x3/uL (130-400)
--- NOTE | 2018-05-31 08:51 | NUR ---
CALLED AND SPOKE WITH ELSI AT [facility], [phone]. INFORMED HER THAT THE PATIENT HAS CRITICAL LAB VALUES THAT NEED TO BE REPORTED TO DR FU SOON POSSIBLE. ELSI STATED "MY RESEARCH ARCHAEOLOGIST IS TAKING CARE OF IT NOW, WHAT EXTENSION DOES THE DOCTOR NEED TO CALL BACK"
[2018-05-31 09:32] LABS: ANISOCYTOSIS OCC; LYMPHOCYTES 14 % (15-50); MONOCYTES 16 % (2-11); NEUTROPHILS 67 % (40-80); POIKILOCYTOSIS OCC; SCHISTOCYTES OCC; SICKLE CELLS 1+
--- NOTE | 2018-05-31 09:58 | NUR ---
HUMBLE CALLED THIS NURSE. ORDERED TYPE AND CROSS AND REPEAT LAB STAT. SHE ALSO STATED TO PAGE LALIT. THIS NURSE PAGED LALIT WAITING ON PHONE CALL BACK. WILL CONTINUE TO MONITOR. PT IS NOT IN DISTRESS AT THIS TIME.
[2018-05-31 10:17] LABS: PLATELET ESTIMATE NORMAL
[2018-05-31 10:18] LABS: PLATELET MORPHOLOGY PLT CLUMPS PRESENT
[2018-05-31 11:20] LABS: HEMATOCRIT 24.3 % (42.0-54.0)
[2018-05-31 11:22] VITALS: BP 115/79
--- NOTE | 2018-05-31 11:26 | NUR ---
THIS NURSE PAGED MICHELLE. LALIT IS OUT OF TOWN. WILL CONTINUE TO MONITOR.
--- NOTE | 2018-05-31 11:31 | NUR ---
LALIT CALLED AND ORDERED TYPE AND CROSS. TYPE AND CROSS IS ORDERED. ALSO TO TRANSFUSE 2 UNITS WITH BENADRYL AND TYLENOL. WELL LASIX 20MG IV BETWEEN BAGS OF IV FLUID. SHE STATED TO CALL SANTI THE MANAGER BANK. THIS NURSE PAGED HIM WAITING BATTER MIXER HELPER BACK.
--- NOTE | 2018-05-31 12:48 | NUR ---
REDRAW ON HEMOGLOBIN RESULTED 8.0. THIS NURSE CALLED SANTI WALL AND HE STATED TO HOLD OFF ON THE BLOOD TRANSFUSION. WILL CONTINUE TO MONITOR.
[2018-05-31 15:21] VITALS: BP 116/67
--- NOTE | 2018-05-31 18:08 | NUR ---
PT SITTING ON SIDE OF BED. CALL LIGHT IN REACH. PT DENIES NEEDS OR PAIN. WCTM IV RUNNING 125 ML/HR.
--- NOTE | 2018-05-31 19:30 | NUR ---
GREETED PATIENT AND INTRODUCED MYSELF HIS NURSE FOR THE EVENING. PATIENT IS LAYING IN BED. PATIENT STATES THAT PAIN IS 8/10 IN BOTH SHOULDERS. CALL LIGHT IN REACH.
[2018-05-31 20:00] VITALS: BP 112/73
--- NOTE | 2018-05-31 20:27 | NUR ---
PT HYDREA GIVEN AND STADOL GIVEN FOR PAIN. PT GIVEN NOURISHMENT. PT HAS NO S/S OF DISTRESS. AAO. PT WILL CALL FOR ASSIST. WILL CPOC
--- NOTE | 2018-05-31 21:01 | NUR ---
SPOKE WITH DR RUBIO REGARDING TEMP OF [address] STATES STARTING TORADOL TODAY. STATED CAN START TORADOL AND GIVEN TYLENOL
--- NOTE | 2018-06-01 00:25 | NUR ---
PATIENT RESTING QUIETLY LAYING IN BED IN SUPINE POSITION. HOB AT 20 DEGREES. RESPIRATIONS EVEN. NO S/S OF DISTRESS. CALL LIGHT IN REACH.
--- NOTE | 2018-06-01 00:44 | NUR ---
ADMINISTER PRN STADOL FOR BILATERAL SHOULDER PAIN 9/10 ON 0-10 PAIN SCALE. CALL LIGHT IN REACH. TM.
--- NOTE | 2018-06-01 01:02 | NUR ---
RECHECKED PATIENT TEMP AFTER ADMINISTRATION OF TYLENOL FOR FEVER OF 101. CURRENT TEMPERATURE 98.2. WCTM. CALL LIGHT IN REACH.
[2018-06-01 01:30] VITALS: BP 118/73
[2018-06-01 03:27] LABS: UDS - AMPHET NEGATIVE QUAL (NEGATIVE); UDS - BARB NEGATIVE QUAL (NEGATIVE); UDS - BENZO NEGATIVE QUAL (NEGATIVE); UDS - COCAINE NEGATIVE QUAL (NEGATIVE); UDS - OPIATE NEGATIVE QUAL (NEGATIVE); UDS - PCP NEGATIVE QUAL (NEGATIVE); UDS - THC NEGATIVE QUAL (NEGATIVE)
[2018-06-01 04:30] VITALS: BP 111/63
--- NOTE | 2018-06-01 05:36 | NUR ---
PATIENT AWAKE AND LAYING IN SUPINE POSITION. REPORTS PAIN IN BILATERAL SHOULDERS AND ASKING FOR PRN TORADOL. CALL LIGHT IN REACH.
--- NOTE | 2018-06-01 05:40 | NUR ---
TERESO GUPTA ADMINISTERED FOR BILATERAL SHOULDER PAIN 8/10 ON 0-10 PAIN SCALE. WCTM. CALL LIGHT IN REACH.
[2018-06-01 07:23] LABS: ALBUMIN 3.4 g/dL (3.4-5.0); ALKALINE PHOSPHATASE 88 U/L (46-116); BILIRUBIN - TOTAL 2.33 mg/dL (0.2-1.3); CALC OSMOLALITY 280 mosm/kg (275-300); CALCIUM 8.9 mg/dL (8.5-10.1); CHLORIDE - SERUM 105 mmol/L (98-107); CREATININE - SERUM 0.7 mg/dL (0.6-1.3); GLUCOSE 104 mg/dL (74-106); MAGNESIUM - SERUM 2.2 mg/dL (1.8-2.4); PROTEIN - SERUM 7.5 g/dL (6.4-8.2); SODIUM 142 mmol/L (136-145); UREA NITROGEN 8 mg/dL (7-18); eGFR NON AFRICAN AMERICAN > 90 mL/min (90-120)
[2018-06-01 07:24] VITALS: BP 112/72
[2018-06-01 07:24] LABS: ALT (SGPT) 45 U/L (10-68)
[2018-06-01 07:25] LABS: BASOPHILS 0.2 % (0-2); EOSINOPHILS 0.3 % (0-7); IMMATURE GRANULOCYTES 0.4 % (0-5); LYMPHOCYTES 12.4 % (15-50); MCH 25.4 pg (26.0-34.0); MCHC 32.6 g/dL (31.0-37.0); MEAN PLATELET VOLUME 8.8 fL (7.4-10.4); MONOCYTES 14.1 % (2-11); NEUTROPHILS 72.6 % (40-80); RBC 2.95 10x6/uL (4.20-6.10); WBC 18.3 10x3/uL (4.8-10.8)
[2018-06-01 07:35] LABS: HEMOGLOBIN 7.5 g/dL (13.5-17.5); PLATELET COUNT 174 10x3/uL (130-400)
--- NOTE | 2018-06-01 07:35 | NUR ---
ASSESSMENT COMPLETE. IV TO L FA PATENT. O2 1L NC IN USE. DENIES ANY NEEDS AT THIS TIME.
[2018-06-01 09:48] LABS: BASOPHILS 0.3 % (0-2); EOSINOPHILS 0.4 % (0-7); HEMATOCRIT 22.1 % (42.0-54.0); IMMATURE GRANULOCYTES 0.5 % (0-5); LYMPHOCYTES 17.8 % (15-50); MCH 25.5 pg (26.0-34.0); MCHC 32.1 g/dL (31.0-37.0); MCV 79.5 fL (80.0-100.0); MEAN PLATELET VOLUME 8.6 fL (7.4-10.4); MONOCYTES 14.5 % (2-11); NEUTROPHILS 66.5 % (40-80); PLATELET COUNT 164 10x3/uL (130-400); RBC 2.78 10x6/uL (4.20-6.10); RDW 21.4 % (11.5-14.5); WBC 16.9 10x3/uL (4.8-10.8)
[2018-06-01 09:49] LABS: HEMOGLOBIN 7.1 g/dL (13.5-17.5)
--- NOTE | 2018-06-01 09:55 | NUR ---
REPEAT HEMOGLOBIN 7.1. KAITLIN HOUGH APN NOTIFIED. ORDER RECIEVED TO TRANSFUSE 1 UNIT PRBC'S.
--- NOTE | 2018-06-01 10:25 | NUR ---
PRBC INFUSION STARTED AT 100 CC/HR VIA PUMP. VSS.
--- NOTE | 2018-06-01 13:04 | NUR ---
DR FU BY TO SEE PATIENT.
--- NOTE | 2018-06-01 13:35 | NUR ---
2ND UNIT OF PRBC'S INFUSION STARTED. VSS.
[2018-06-01 15:20] VITALS: BP 121/76
--- NOTE | 2018-06-01 17:00 | NUR ---
EATING DINNER. PRBC INFUSION COMPLETED. VSS. DENIES ANY NEEDS AT THIS TIME.
--- NOTE | 2018-06-01 17:26 | NUR ---
TORADOL GIVEN PO FOR COMPLAINT OF JOINT PAIN.
--- NOTE | 2018-06-01 19:15 | NUR ---
PT AWAKE IN BED WHEN ENTERING ROOM. STATES "IM GOOD IT GETS RIGHT NOW." STATES TRAMADOL GIVEN BY DAY NURSE WAS EFFECTIVE FOR PAIN. SPOKE WITH PATIENT ABOUT WANTING TO GO HOME. 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 PT STATES THAT HE DOES NOT WANT TO GO HOME ON PRESCRIPTION MEDICINE IT INTERFERES WITH LIVING FACILITY REQUIREMENTS. INSTRUCTED PT TO TALK WITH MD ABOUT WHAT MEDS HE WILL BE D/C'D WITH. PT STATES UNDERSTANDING. PT STATES THAT PAIN IS CONTROLLED RIGHT NOW. DENIES NEEDS. CALL LIGHT IN HAND. CPOC.
[2018-06-01 20:59] VITALS: BP 150/63
--- NOTE | 2018-06-01 21:06 | NUR ---
VITALS ASSESSED AND IN CHART. ADMINSITERED HS MEDICATIONS. TOLERATED WELL. WILL CONTINUE PLAN OF CARE.
--- NOTE | 2018-06-01 23:50 | NUR ---
I AGREE WITH THE PRICING LEAD ASSESSMENT CHARTED THIS SHIFT.
[2018-06-02 00:09] VITALS: BP 126/86
--- NOTE | 2018-06-02 01:30 | NUR ---
PT REQUESTED PAIN MEDICINE. BROUGHT IN TORADOL. PT STATES "NO I NEED THE IV PLEASE. I NEED THIS TO GO AWAY NOW." ASKED PT IF HE WAS SURE SINCE HE TOLD THIS NURSE EARLIER THAT HE DIDNT WANT ANY IV MEDS. PT STATES THAT HE WANTS TO GO AHEAD WITH IT NOW BECAUSE HE IS IN SO MUCH PAIN. PULLED MED FROM TheraVid. ADMINISTERED 1 MG TO PT. TOLERATED. DENIES FURTHER NEEDS
[2018-06-02 04:00] VITALS: BP 141/82
--- NOTE | 2018-06-02 06:16 | NUR ---
PT STATES THAT HE FEELS IF HE HAD A SICKLE CELL CRISIS LAST NIGHT ABOUT 2 AM. STATES HE HIT HIS LIGHT BUT THEN TURNED AND PRESSED THE RED BUTTON AND DECIDED TO CANCEL IT. STATES THAT HE WAS IN MORE PAIN THAN WHEN HE CAME IN BUT HE STATES HE DID NOT WANT TO TELL ANYONE. PT STATES THAT HE FELT LIKE IT WAS A SIGN FROM GOD. REQUESTED TORADAL AND ASKS IF IT IS A TRAP IF HE TAKES IT. SPOKE WITH PT ABOUT HIS CONCERNS AND PT REQUESTS TORADOL AND RATES PAIN 8/10. ADMINISTERED AND TOLERATED.
--- NOTE | 2018-06-02 07:20 | NUR ---
PT RESTING IN BED, EYES OPEN. PT ALERT AND ORIENTED. UP AD WARREN. IV TO LEFT FOREARM, NS INFUSING @ 125. PT ON ELECTROLYTE PROTOCOL. NO C/O PAIN. NO S/S OF ACUTE DISTRESS NOTED. PT DENIES ANYTHING FURTHER AT THIS TIME. CALL LIGHT IN REACH. WILL CONTINUE TO MONITOR.
[2018-06-02 07:39] LABS: BASOPHILS 0.2 % (0-2); EOSINOPHILS 0.4 % (0-7); IMMATURE GRANULOCYTES 0.3 % (0-5); LYMPHOCYTES 18.5 % (15-50); MCHC 33.2 g/dL (31.0-37.0); MCV 78.2 fL (80.0-100.0); MEAN PLATELET VOLUME 8.9 fL (7.4-10.4); MONOCYTES 12.8 % (2-11); NEUTROPHILS 67.8 % (40-80); PLATELET COUNT 193 10x3/uL (130-400); RDW 19.7 % (11.5-14.5); WBC 17.5 10x3/uL (4.8-10.8)
[2018-06-02 07:40] LABS: HEMATOCRIT 28.3 % (42.0-54.0); HEMOGLOBIN 9.4 g/dL (13.5-17.5); RBC 3.62 10x6/uL (4.20-6.10)
[2018-06-02 08:00] VITALS: BP 118/72
[2018-06-02 08:00] LABS: ALKALINE PHOSPHATASE 96 U/L (46-116); BILIRUBIN - TOTAL 2.14 mg/dL (0.2-1.3); CALC OSMOLALITY 281 mosm/kg (275-300); CALCIUM 8.7 mg/dL (8.5-10.1); CARBON DIOXIDE 24.2 mmol/L (21.0-32.0); CHLORIDE - SERUM 107 mmol/L (98-107); CREATININE - SERUM 0.6 mg/dL (0.6-1.3); GLUCOSE 101 mg/dL (74-106); MAGNESIUM - SERUM 2.1 mg/dL (1.8-2.4); POTASSIUM - SERUM 3.9 mmol/L (3.5-5.1); PROTEIN - SERUM 7.2 g/dL (6.4-8.2); SODIUM 142 mmol/L (136-145); UREA NITROGEN 9 mg/dL (7-18); eGFR NON AFRICAN AMERICAN > 90 mL/min (90-120)
[2018-06-02 08:01] LABS: ALT (SGPT) 72 U/L (10-68)
[2018-06-02 10:54] VITALS: BP 118/72
--- NOTE | 2018-06-02 12:00 | NUR ---
PTC/O PAIN FL BUTORPHANOL GIVEN. WILL CTM. CL IN REACH, BED IN LOW.
[2018-06-02 18:26] VITALS: BP 124/76
--- NOTE | 2018-06-02 18:56 | NUR ---
PT RESTING IN BED, EYES OPEN. NO C/O PAIN. NO S/S OF ACUTE DISTRESS NOTED. PT DENIES ANYTHING FURTHER AT THIS TIME. CALL LIGHT IN REACH. WILL CONTINUE TO MONITOR.
--- NOTE | 2018-06-02 18:58 | NUR ---
I have reviewed this patient and I concur with the Shift Assessment completed by the Licensed Practical Nurse today this shift.
--- NOTE | 2018-06-02 19:03 | NUR ---
I have reviewed this patient and I concur with the Shift Assessment completed by the Licensed Practical Nurse today this shift.
--- NOTE | 2018-06-02 19:47 | NUR ---
RECIEVED BEDSIDE REPORT. PT RESTING IN BED WITH EYES OPEN. AAOX4, VSS, RR EVEN AND UNLABORED. NO S/S OF RR DISTRESS. PT STATES HE IS FEELING MUCH BETTER TONIGHT. DENIES ANY NEED FOR COMFORT CARE. WILL CPOC. CL IN REACH, BED IN LOW, SR UP X2.
[2018-06-02 20:01] VITALS: BP 125/74
[2018-06-03 01:04] VITALS: BP 147/89
[2018-06-03 04:00] VITALS: BP 124/82
[2018-06-03 07:54] VITALS: BP 122/82
[2018-06-03 10:22] LABS: BASOPHILS 0.5 % (0-2); EOSINOPHILS 0.9 % (0-7); HEMATOCRIT 29.5 % (42.0-54.0); HEMOGLOBIN 9.7 g/dL (13.5-17.5); IMMATURE GRANULOCYTES 0.6 % (0-5); LYMPHOCYTES 21.8 % (15-50); MCH 25.5 pg (26.0-34.0); MCHC 32.9 g/dL (31.0-37.0); MCV 77.4 fL (80.0-100.0); MEAN PLATELET VOLUME 9.4 fL (7.4-10.4); MONOCYTES 17.1 % (2-11); NEUTROPHILS 59.1 % (40-80); PLATELET COUNT 220 10x3/uL (130-400); RBC 3.81 10x6/uL (4.20-6.10); WBC 11.2 10x3/uL (4.8-10.8)
[2018-06-03 10:29] LABS: ALBUMIN 3.4 g/dL (3.4-5.0); ALKALINE PHOSPHATASE 107 U/L (46-116); BILIRUBIN - TOTAL 1.91 mg/dL (0.2-1.3); CALCIUM 8.6 mg/dL (8.5-10.1); CARBON DIOXIDE 27.5 mmol/L (21.0-32.0); CHLORIDE - SERUM 105 mmol/L (98-107); CREATININE - SERUM 0.7 mg/dL (0.6-1.3); GLUCOSE 108 mg/dL (74-106); PROTEIN - SERUM 7.1 g/dL (6.4-8.2); UREA NITROGEN 10 mg/dL (7-18); eGFR NON AFRICAN AMERICAN > 90 mL/min (90-120)
[2018-06-03 10:35] LABS: CALC OSMOLALITY 269 mosm/kg (275-300); SODIUM 135 mmol/L (136-145)
[2018-06-03 10:41] LABS: ALT (SGPT) 91 U/L (10-68); POTASSIUM - SERUM 5.3 mmol/L (3.5-5.1)
[2018-06-03] MEDS ORDERED: MACROBID100 MG PO (10:41)
[2018-06-03] MEDS ORDERED: HYDROXYUREA500 MG PO (10:42)
--- NOTE | 2018-06-03 10:58 | NUR ---
PIV TO PT LEFT FA DC WITH CATHETER TIP INTACT. REVIEWED DISCHARGE INSTRUCTIONS WITH PT AND ALL QUESTIONS ANSWERED. ASSISTED PT TO FRONT OF HOSPITAL WHERE HE SAT WAITING FOR HIS TAXI TO ARRIVE
== END 2018-06-03 16:40 | disposition home or self-care (01) | DRG 809 ==
LOC: D.ER 12:44 → D.M3 14:58 → D.EDHOLD 14:58 → D.M3 15:07 → D.SDCHOLD 05-29 19:56 → D.M3 05-29 19:58
PROVIDERS: Emergency Medicine; Family Medicine; Legal Medicine; ADMIT Family Medicine; ATTEND Family Medicine
DX: D61.9 Aplastic anemia, unspecified (principal); N39.0 Urinary tract infection, site not specified; D57.01 Hb-SS disease with acute chest syndrome; E80.6 Other disorders of bilirubin metabolism; M14.80 Arthropathies in other specified diseases classified elsewhere, unspecified site; R50.81 Fever presenting with conditions classified elsewhere; Z87.891 Personal history of nicotine dependence

== ENCOUNTER 2018-11-13 11:11 | Emergency (ER) | payer MEDICAID ==
[~2018-11-13] VITALS: Ht 172.7 cm; Wt 52.3 kg
[~2018-11-13 11:11] MED LIST changes: +IBUPROFEN400 MG PO; +MACROBID100 MG PO
[2018-11-13 11:14] VITALS: Ht 172.7 cm; Wt 52.3 kg
[2018-11-13 12:41] LABS: BASOPHILS 0.5 % (0-2); EOSINOPHILS 0.6 % (0-7); HEMATOCRIT 25.6 % (42.0-54.0); HEMOGLOBIN 8.8 g/dL (13.5-17.5); IMMATURE GRANULOCYTES 6.1 % (0-5); LYMPHOCYTES 22.1 % (15-50); MCH 27.3 pg (26.0-34.0); MCHC 34.4 g/dL (31.0-37.0); MCV 79.5 fL (80.0-100.0); MEAN PLATELET VOLUME 8.3 fL (7.4-10.4); MONOCYTES 8.7 % (2-11); PLATELET COUNT 256 10x3/uL (130-400); RBC 3.22 10x6/uL (4.20-6.10); RDW 23.3 % (11.5-14.5); WBC 19.5 10x3/uL (4.8-10.8)
[2018-11-13 12:54] LABS: ALBUMIN 4.1 g/dL (3.4-5.0); ALKALINE PHOSPHATASE 121 U/L (46-116); ALT (SGPT) 56 U/L (10-68); BILIRUBIN - TOTAL 3.85 mg/dL (0.2-1.3); CALC OSMOLALITY 285 mosm/kg (275-300); CALCIUM 9.2 mg/dL (8.5-10.1); CARBON DIOXIDE 24.9 mmol/L (21.0-32.0); CHLORIDE - SERUM 110 mmol/L (98-107); CREATININE - SERUM 0.8 mg/dL (0.6-1.3); GLUCOSE 93 mg/dL (74-106); POTASSIUM - SERUM 3.9 mmol/L (3.5-5.1); PROTEIN - SERUM 7.1 g/dL (6.4-8.2); SODIUM 144 mmol/L (136-145); UREA NITROGEN 9 mg/dL (7-18); eGFR NON AFRICAN AMERICAN > 90 mL/min (90-120)
[2018-11-13 13:03] LABS: CKMB 0.8 U/L (0.0-3.6)
[2018-11-13 13:04] LABS: INR 1.11 (0.85-1.17); PROTIME 13.8 SECONDS (11.6-15.0)
--- NOTE | 2018-11-13 13:20 | NUR ---
ARM BAND WOULD NOT SCAN
--- NOTE | 2018-11-13 13:50 | NUR ---
CALLED FOR ABG'S AND BREATHING TREATMENT
[2018-11-13 13:55] LABS: APPEARANCE CLEAR (CLEAR); BILIRUBIN NEGATIVE (NEGATIVE); COLOR YELLOW (YELLOW); GLUCOSE NEGATIVE (NEGATIVE); KETONE NEGATIVE (NEGATIVE); NITRITE NEGATIVE (NEGATIVE); PROTEIN NEGATIVE (NEGATIVE); SPECIFIC GRAVITY 1.005 (1.005-1.020); UROBILINOGEN NORMAL (NORMAL)
--- NOTE | 2018-11-13 14:41 | NUR ---
PT STATED TO THIS NURSE HE "WANTED TO FILE A REPORT WITH A SAFETY AIDE" D/T HIS UNSATISFACTION WITH THIS ED VISIT. PT STATED THAT HE WAS UPHAPPY THAT HE HAD NOT BEEN GIVEN ADDITIONAL PAIN MEDICATION. THIS NURSE EXPLAINED THAT APPROX. 10 MIN AGO I CALLED AND SPOKE WITH PHARMACY TO REQUEST DILAUDID FOR ORDERED COMMERCIAL LEASING AGENT PUMP BE SENT TO THE ED FOR ADMINISTRATION. NOTED, PT RECEIVED IV DILAUDID SHORTLY AFTER ARRIVAL TO THE ED. THIS NURSE EXPLAINED THAT I WAS UNABLE TO ADMINISTER ORDERED MEDICATION UNTIL IT HAD ARRIVED TO THE ED. PT STILL CONTINUES TO STATE THAT HE WANTS TO "FILE A REPORT." PT STATED, "I HAVE BEEN TO THE ER A LOT OF TIMES, AND IT'S LIKE I WAS LEFT TO IN HERE." CHARGE NURSE GUILLE MORGAN RN NOTIFIED AND IS AT THE BEDSIDE SPEAKING WITH PT NOW.
[2018-11-13 14:42] VITALS: BP 133/88
[2018-11-13 15:20] VITALS: BP 120/65
--- NOTE | 2018-11-13 15:40 | NUR ---
THIS NURSE ATEMPTED TO INITIATE TRACK WELDER PUMP, PT REFUSED, PT STATED THAT HE WAS LEAVING BECAUSE "HE DIDN'T FEEL SAFE BEING HERE IF PATIENTS WERE LEFT TO BE IN PAIN LIKE THIS." PT STATING THAT HE WANTS TO LEAVE AMA, CHARGE NURSE AND TREATING PROVIDER NOTIFIED. SHELLI, TREATING PROVIDER ENCOURAGED PT TO STAY, PT REFUSING, PT STATES HE WANTS TO SPEAK WITH SOMEONE TO "FILE A REPORT." PER CHARGE NURSE ARTURO Quigley RN, ED APPLICATION DEVELOPMENT TEAM LEAD IS COMING TO THE ED TO SPEAK WITH PT PER HIS REQUEST.
[2018-11-13 16:01] VITALS: BP 117/81
--- NOTE | 2018-11-13 16:30 | NUR ---
AFTER MULTIPLE STAFF MEMBERS, INCLUDING TREATING ED PROVIDER Emiliana GREEN, PT CHOOSING TO LEAVE AMA. ADMITTING PHYSICIAN, DR. MENENDEZ, NOTIFIED AT 1629 THAT PT LEFT AMA.
--- NOTE | 2018-11-13 19:53 | NUR ---
6MG/30ML DILAUDID SYRINGE THAT WAS REMOVED FOR DRY CLEANER HELPER ADMINISTRATION UNABLE TO FIT IN THE RETURN BIN OF FOSTER ONCE PT REFUSED AND CHOSE TO LEAVE AMA. UNOPENED SYRINGE RETURNED TO [place] IN PHARMACY BY THIS NURSE AT 1950.
[2018-11-14 07:59] LABS: ALBUMIN 3.8 g/dL (3.4-5.0); ALKALINE PHOSPHATASE 116 U/L (46-116); ALT (SGPT) 62 U/L (10-68); CALC OSMOLALITY 281 mosm/kg (275-300); CALCIUM 8.8 mg/dL (8.5-10.1); CARBON DIOXIDE 24.6 mmol/L (21.0-32.0); CHLORIDE - SERUM 106 mmol/L (98-107); CREATININE - SERUM 0.8 mg/dL (0.6-1.3); GLUCOSE 95 mg/dL (74-106); MAGNESIUM - SERUM 1.7 mg/dL (1.8-2.4); PROTEIN - SERUM 6.7 g/dL (6.4-8.2); SODIUM 142 mmol/L (136-145); UREA NITROGEN 10 mg/dL (7-18); eGFR NON AFRICAN AMERICAN > 90 mL/min (90-120)
[2018-11-14 08:06] LABS: HEMOGLOBIN 7.6 g/dL (13.5-17.5); MCH 27.3 pg (26.0-34.0); MCHC 34.5 g/dL (31.0-37.0); MCV 79.1 fL (80.0-100.0); MEAN PLATELET VOLUME 8.2 fL (7.4-10.4); PLATELET COUNT 136 10x3/uL (130-400); RBC 2.78 10x6/uL (4.20-6.10); RDW 23.4 % (11.5-14.5); WBC 26.6 10x3/uL (4.8-10.8)
[2018-11-14 08:39] LABS: EOSINOPHILS 1 % (0-7); LYMPHOCYTES 17 % (15-50); MONOCYTES 6 % (2-11); NEUTROPHILS 72 % (40-80)
[2018-11-14 08:40] LABS: ANISOCYTOSIS 2+; PLATELET ESTIMATE DECREASED; POIKILOCYTOSIS 3+; TARGET CELLS OCC
[2018-11-14 08:41] LABS: ELLIPTOCYTES 2+; POLYCHROMASIA 2+
== END 2018-11-13 16:20 | disposition other institution (70) ==
LOC: D.ER 11:11 → D.MS 15:23 → D.ER 16:20
PROVIDERS: Family Medicine
DX: D57.00 Hb-SS disease with crisis, unspecified (principal); D64.9 Anemia, unspecified; M54.9 Dorsalgia, unspecified

== ENCOUNTER 2018-11-14 00:46 | Inpatient (IN) | payer MEDICAID ==
[~2018-11-14] VITALS: Ht 172.7 cm; Wt 54.4 kg
[2018-11-14 04:50] VITALS: BP 127/83; BMI 18.2
[2018-11-14 08:38] VITALS: BP 131/92
[2018-11-14 11:10] VITALS: BMI 18.2
[2018-11-14 11:58] VITALS: BP 156/56
[2018-11-14 15:24] LABS: HEMATOCRIT 23.4 % (42.0-54.0); MCH 26.8 pg (26.0-34.0); MCHC 34.2 g/dL (31.0-37.0); MCV 78.5 fL (80.0-100.0); MEAN PLATELET VOLUME 8.3 fL (7.4-10.4); PLATELET COUNT 139 10x3/uL (130-400); RBC 2.98 10x6/uL (4.20-6.10); RDW 23.1 % (11.5-14.5); WBC 21.4 10x3/uL (4.8-10.8)
[2018-11-14 15:49] LABS: ALBUMIN 3.8 g/dL (3.4-5.0); ALKALINE PHOSPHATASE 130 U/L (46-116); ALT (SGPT) 66 U/L (10-68); BILIRUBIN - TOTAL 4.81 mg/dL (0.2-1.3); CALC OSMOLALITY 283 mosm/kg (275-300); CALCIUM 8.9 mg/dL (8.5-10.1); CARBON DIOXIDE 26.2 mmol/L (21.0-32.0); CHLORIDE - SERUM 107 mmol/L (98-107); CREATININE - SERUM 0.8 mg/dL (0.6-1.3); GLUCOSE 90 mg/dL (74-106); PROTEIN - SERUM 6.9 g/dL (6.4-8.2); SODIUM 143 mmol/L (136-145); UREA NITROGEN 10 mg/dL (7-18); eGFR NON AFRICAN AMERICAN > 90 mL/min (90-120)
[2018-11-14 15:54] LABS: LYMPHOCYTES 8 % (15-50); MONOCYTES 2 % (2-11); NEUTROPHILS 87 % (40-80); SICKLE CELLS 1+; TARGET CELLS 3+
[2018-11-14 15:55] LABS: PLATELET ESTIMATE NORMAL; POLYCHROMASIA OCC
[2018-11-14 16:34] VITALS: BP 137/67
[2018-11-14 17:37] VITALS: Ht 172.7 cm; Wt 54.4 kg
[2018-11-14 20:00] VITALS: BP 116/75
[2018-11-15 04:00] VITALS: BP 126/79
[2018-11-15 05:22] LABS: HEMATOCRIT 26.6 % (42.0-54.0); HEMOGLOBIN 9.3 g/dL (13.5-17.5); MCH 27.5 pg (26.0-34.0); MCV 78.7 fL (80.0-100.0); MEAN PLATELET VOLUME 8.4 fL (7.4-10.4); PLATELET COUNT 130 10x3/uL (130-400); RBC 3.38 10x6/uL (4.20-6.10); RDW 21.5 % (11.5-14.5); WBC 20.6 10x3/uL (4.8-10.8)
[2018-11-15 10:12] LABS: ANISOCYTOSIS 2+; LYMPHOCYTES 10 % (15-50); MONOCYTES 10 % (2-11); NEUTROPHILS 79 % (40-80); PLATELET ESTIMATE DECREASED
[2018-11-15 10:13] LABS: POIKILOCYTOSIS 3+; POLYCHROMASIA 1+; SICKLE CELLS 2+; TARGET CELLS 2+
[2018-11-15 13:10] LABS: APPEARANCE CLEAR (CLEAR); BILIRUBIN NEGATIVE (NEGATIVE); COLOR YELLOW (YELLOW); GLUCOSE NEGATIVE (NEGATIVE); KETONE MODERATE mg/dL (NEGATIVE); NITRITE NEGATIVE (NEGATIVE); PROTEIN NEGATIVE (NEGATIVE); SPECIFIC GRAVITY 1.015 (1.005-1.020); UROBILINOGEN NORMAL (NORMAL)
[2018-11-15 13:32] VITALS: BP 130/57
[2018-11-15 20:00] VITALS: BP 125/66
[2018-11-16 04:50] VITALS: BP 108/69
[2018-11-16 05:34] LABS: BASOPHILS 0.2 % (0-2); EOSINOPHILS 0.1 % (0-7); HEMATOCRIT 26.3 % (42.0-54.0); HEMOGLOBIN 9.1 g/dL (13.5-17.5); IMMATURE GRANULOCYTES 0.6 % (0-5); LYMPHOCYTES 9.7 % (15-50); MCH 27.1 pg (26.0-34.0); MCHC 34.6 g/dL (31.0-37.0); MCV 78.3 fL (80.0-100.0); MEAN PLATELET VOLUME 8.7 fL (7.4-10.4); MONOCYTES 11.9 % (2-11); NEUTROPHILS 77.5 % (40-80); PLATELET COUNT 130 10x3/uL (130-400); RBC 3.36 10x6/uL (4.20-6.10); RDW 20.5 % (11.5-14.5); WBC 19.5 10x3/uL (4.8-10.8)
[2018-11-16 08:59] VITALS: BP 102/72
[2018-11-16 14:37] VITALS: BP 127/89
[2018-11-16 16:49] VITALS: BP 105/66
[2018-11-16 19:50] VITALS: BP 106/67
[2018-11-17] VITALS: BP 97/65
[2018-11-17 04:00] VITALS: BP 95/62
[2018-11-17 06:40] LABS: BASOPHILS 0.3 % (0-2); EOSINOPHILS 0.3 % (0-7); HEMATOCRIT 25.4 % (42.0-54.0); HEMOGLOBIN 8.8 g/dL (13.5-17.5); IMMATURE GRANULOCYTES 0.4 % (0-5); LYMPHOCYTES 29.4 % (15-50); MCH 27.1 pg (26.0-34.0); MCHC 34.6 g/dL (31.0-37.0); MCV 78.2 fL (80.0-100.0); MEAN PLATELET VOLUME 8.7 fL (7.4-10.4); MONOCYTES 11.3 % (2-11); NEUTROPHILS 58.3 % (40-80); PLATELET COUNT 144 10x3/uL (130-400); RBC 3.25 10x6/uL (4.20-6.10); RDW 19.9 % (11.5-14.5); WBC 17.8 10x3/uL (4.8-10.8)
[2018-11-17 07:14] VITALS: BP 104/66
[2018-11-17 12:43] VITALS: BP 103/68
[2018-11-17 18:26] VITALS: BP 106/68
[2018-11-17 20:00] VITALS: BP 109/65
[2018-11-18] VITALS (13 sets, daily range): BP systolic 93–107; BP diastolic 35–75
[2018-11-18 06:14] LABS: HEMATOCRIT 23.8 % (42.0-54.0); MCH 26.4 pg (26.0-34.0); MCHC 33.6 g/dL (31.0-37.0); MCV 78.5 fL (80.0-100.0); MEAN PLATELET VOLUME 8.9 fL (7.4-10.4); PLATELET COUNT 149 10x3/uL (130-400); RBC 3.03 10x6/uL (4.20-6.10); RDW 19.7 % (11.5-14.5); WBC 16.1 10x3/uL (4.8-10.8)
[2018-11-18 08:44] LABS: LYMPHOCYTES 19 % (15-50); MONOCYTES 13 % (2-11); NEUTROPHILS 68 % (40-80); PLATELET ESTIMATE NORMAL
[2018-11-18 08:45] LABS: ANISOCYTOSIS 1+; POIKILOCYTOSIS 1+; SICKLE CELLS OCC; TARGET CELLS 1+
--- NOTE | 2018-11-18 14:29 | MORECARE ---
CASE MANAGEMENT DISCHARGE SUMMARY PATIENT: MARI FITCH UNIT: [id number] ADM DATE: 11/14/18 AGE: 28 : [birth year] SEX: M ROOM/BED: D.2203 AUTHOR: GILMARDOC PHYSICIAN: REFERRING PHYSICIAN: ALISHA MENENDEZ DO DATE OF SERVICE: 11/18/18 Discharge Plan Patient Name: MARI FITCH Facility: [facility]:[place] : 1990 Planned Disposition: Home or Self Care Anticipated Discharge Date: Discharge Date: Expected LOS: Initial Reviewer: Initial Review Date: 11/14/2018 Generated: 11/18/18 3:29 pm Comments DCP- Discharge Planning Updated by [email or web address]: Rowena Souza on 11/18/18 1:[address] Patient Name: MARI FITCH Admission Status: ER Accout number: [id number] Admission Date: 11-14-2018 : 1990 Admission Diagnosis: Attending: LAISHA MENENDEZ Current LOS: 4 Anticipated DC Date: Planned Disposition: Home or Self Care Primary Insurance: MEDICAID [place] Discharge Planning Comments: CM met with patient to complete initial dc planning assessment. CM educated patient on the CM role and verbal consent given by patient to complete assessment. Patient lives with a roommate where he is independent with his care. At discharge patient plans to return home and feels this is a safe discharge. CM discussed availability of home health, rehab services, and medical equipment. He stated Vipul (his roommate) will be his peg driver home. Patient denied known discharge needs at this time. CM will continue to follow and will assist as needed with dc plans/needs. Placing Judge: Rowena Souza DCPIA - Discharge Planning Initial Assessment Updated by [email or web address]: Rowena Souza on 11/18/18 2:25 pm * Is the patient Alert and Oriented? Yes * How many steps to enter\exit or inside your home? * PCP EVELINE ? * Pharmacy [facility] * Preadmission Environment Home Alone * ADLs Independent * Equipment None * List name and contact numbers for known caregivers / representatives who currently or will assist patient after discharge: VIPUL (ROOMMATE) [phone] * Verbal permission to speak to the caregivers and representatives has been obtained from the patient. N/A * Community resources currently utilized None * Additional services required to return to the preadmission environment? No * Can the patient safely return to the preadmission environment? Yes * Has this patient been hospitalized within the prior 30 days at any hospital? No Patient Name: MARI FITCH Page [id number] at 1429 All edits/amendments must be made on the electronic document DICTATION DATE: 11/18/181428 CLIENT SERVICES DIRECTOR: JOSÉ MIGUEL 11/18/181428 RPT#: [id number] DC DATE: STATUS: ADM IN [facility] [address] [place] [address] END OF REPORT
--- NOTE | 2018-11-18 14:46 | MORECARE ---
CASE MANAGEMENT DISCHARGE SUMMARY PATIENT: MARI FITCH UNIT: [id number] ADM DATE: 11/14/18 AGE: 28 : [birth year] SEX: M ROOM/BED: D.2203 AUTHOR: GILMARDOC PHYSICIAN: REFERRING PHYSICIAN: ALISHA MENENDEZ DO DATE OF SERVICE: 11/18/18 Discharge Plan Patient Name: MARI FITCH Facility: [facility]:[place] : 1990 Planned Disposition: Home or Self Care Anticipated Discharge Date: Discharge Date: Expected LOS: Initial Reviewer: [email or web address] Initial Review Date: 11/14/2018 Generated: 11/18/18 3:45 pm Comments DCP- Discharge Planning Updated by [email or web address]: Rowena Sozua on 11/18/18 1:[address] I CALLED DR MOSQUERA'S OFFICE SPOKE WITH Manuela DANG, PATIENT HAS NOT BEEN AT THEIR OFFICE FOR A YEAR IN A HALF AND STATED THAT SHE WOULD MAKE A FOLLOW UP APPOITNEMT FOR HIM, BUT HE HAS HAD MULTIPLE NO SHOW AND THAT HE WOULD NEED TO MAKE SURE HE MADE THIS APPOINTMENT OR HE WOULD RUN THE RISK TO BE FIRED. I HAVE MADE HIS FOLLOW UP APPOINTMENT FOR SundayNov AT 1:30 PM. HE WILL SEE ZENOBIA GALLARDO APN. I HAVE EXPLAINED TO HIM THAT ABOVE AND HE STATES UNDERSTANDING. CM TO FOLLOW AND ASSIST NEEDED DCP- Discharge Planning Updated by [id number]: Rowena Souza on 11/18/18 1:[address] Patient Name: MARI FITCH Admission Status: ER Accout number: [id number] Admission Date: 11-14-2018 : 1990 Admission Diagnosis: Attending: ALISHA MENENDEZ Current LOS: 4 Anticipated DC Date: Planned Disposition: Home or Self Care Primary Insurance: MEDICAID [place] Discharge Planning Comments: CM met with patient to complete initial dc planning assessment. CM educated patient on the CM role and verbal consent given by patient to complete assessment. Patient lives with a roommate where he is independent with his care. At discharge patient plans to return home and feels this is a safe discharge. CM discussed availability of home health, rehab services, and medical equipment. He stated Juan (his roommate) will be his driver/sales workers home. Patient denied known discharge needs at this time. CM will continue to follow and will assist as needed with dc plans/needs. Road Mender: Rowena Souza DCPIA - Discharge Planning Initial Assessment Updated by [email or web address]: oRwena Souza on 11/18/18 2:25 pm * Is the patient Alert and Oriented? Yes * How many steps to enter\exit or inside your home? * PCP BLAGDON ? * Pharmacy [facility] [address] * Preadmission Environment Home Alone * ADLs Independent * Equipment None * List name and contact numbers for known caregivers / representatives who currently or will assist patient after discharge: JUAN (ROOMMATE) [phone] * Verbal permission to speak to the caregivers and representatives has been obtained from the patient. N/A * Community resources currently utilized None * Additional services required to return to the preadmission environment? No * Can the patient safely return to the preadmission environment? Yes * Has this patient been hospitalized within the prior 30 days at any hospital? No Last DP export: 11/18/18 1:29 p Patient Name: MARI FITCH Page [id number] at 1446 All edits/amendments must be made on the electronic document DICTATION DATE: 11/18/181444 BISQUE TILE BURNER: JOSÉ MIGUEL 11/18/181444 RPT#: [id number] DC DATE: STATUS: ADM IN [facility] [address] [place] [address] END OF REPORT
[2018-11-19 00:17] VITALS: BP 103/59
[2018-11-19 04:42] VITALS: BP 118/50
[2018-11-19 06:38] LABS: BASOPHILS 0.4 % (0-2); EOSINOPHILS 0.7 % (0-7); HEMATOCRIT 31.5 % (42.0-54.0); IMMATURE GRANULOCYTES 0.4 % (0-5); LYMPHOCYTES 15.7 % (15-50); MCH 27.6 pg (26.0-34.0); MCHC 34.9 g/dL (31.0-37.0); MCV 79.1 fL (80.0-100.0); MONOCYTES 17.2 % (2-11); NEUTROPHILS 65.6 % (40-80); PLATELET COUNT 156 10x3/uL (130-400); RBC 3.98 10x6/uL (4.20-6.10); RDW 18.1 % (11.5-14.5)
[2018-11-19 08:06] VITALS: BP 106/71
[2018-11-19 08:12] LABS: CALC OSMOLALITY 277 mosm/kg (275-300); CALCIUM 9.3 mg/dL (8.5-10.1); CARBON DIOXIDE 27.4 mmol/L (21.0-32.0); CHLORIDE - SERUM 103 mmol/L (98-107); CREATININE - SERUM 0.7 mg/dL (0.6-1.3); GLUCOSE 114 mg/dL (74-106); POTASSIUM - SERUM 4.1 mmol/L (3.5-5.1); SODIUM 140 mmol/L (136-145); UREA NITROGEN 7 mg/dL (7-18); eGFR NON AFRICAN AMERICAN > 90 mL/min (90-120)
[2018-11-19 09:23] LABS: PLATELET ESTIMATE NORMAL
[2018-11-19 09:28] LABS: ANISOCYTOSIS OCC; POLYCHROMASIA OCC; ROULEAUX OCC; TEAR DROP CELLS OCC
[2018-11-19 09:29] LABS: TARGET CELLS OCC
--- NOTE | 2018-11-19 11:10 | EC ---
PATIENT:MARI FITCH DATE OF SERVICE: 11/14/18 SEX: M MEDICAL RECORD: [id number] DATE OF : [birth year] LOCATION:D.MS [address] AGE OF PATIENT: 28 ADMISSION DATE: 11/14/18 REFERRING PHYSICIAN: INTERPRETING PHYSICIAN: BRISEIDA HOGAN MD ECHOCARDIOGRAM REPORT ECHO CHARGES 4 ECHO COMPLETE Date: 11/18/18 CLINICAL DIAGNOSIS: MURMUR ECHOCARDIOGRAPHIC MEASUREMENTS (adult normal given) AC root (d.<3.7cm) 3.4 cm LV Septum d (<1.2 cm> 1.2 cm Valve Excursion 2.3 cm LV Septum (systole) 1.7 cm Left Atria (s.<4.0cm> 3.4 cm LVPW d(<1.2cm) 1.2 cm RV (d.<2.3cm) 2.5 cm LVPW (sytole) 1.7 cm LV diastole(<5.6CM) 5.3 cm MV E-F(>70mm/sec) cm LV systole 3.2 cm LVOT Diameter 2.1 cm MV exc.(>10mm) cm Est.ejection fraction (50-75%) % DOPPLER: LVIT cm/sec A 61.0 cm/sec E 83.0 cm/sec LA cm/sec RVSP 37.0 mmHg LVOT 143 cm/sec AOP1/2T m/s Asc. Ao 160 cm/sec RVOT 76.0 cm/sec RA cm/sec PA 232 cm/sec AV Gradient Peak 10.3 mmHg AV Mean 5.3 mmHg AV Area 2.4 cm MV Gradient Peak 3.9 mmHg MV Mean 1.8 mmHg MV Area cm COMMENTS: Sonoscope Operator: Gaby DAVILA Winch Operator: Josef Pulido TAPE# PACS Pericardial Effusion N DATE OF SERVICE: 11/18/2018 FINDINGS: 1. Left ventricular chamber size is within normal limits. Left ventricular systolic function is normal. Overall ejection fraction estimated at 55%. 2. Left atrium, right atrium, and right ventricular chamber sizes are within normal limits. 3. Valvular structures have normal structure and motion. 4. Doppler interrogation only reveals trace tricuspid regurgitation, no other valvular insufficiency or stenosis. ECHOCARDIOGRAM REPORT [id number] MARI FITCH 5. No evidence of pericardial effusion or left ventricular thrombus. TRANSINT:[id number] Voice Confirmation ID: [id number] DOCUMENT ID: [id number] BRISEIDA HOGAN MD at 1110 CC: [id number] DICTATION DATE: 11/18/18 1136 SUPERVISOR REWORK: 11/18/18 1158 ADM IN [facility] [address] [place] [id number]
[2018-11-19 13:06] LABS: APPEARANCE CLEAR (CLEAR); BILIRUBIN NEGATIVE (NEGATIVE); COLOR YELLOW (YELLOW); GLUCOSE NEGATIVE (NEGATIVE); KETONE NEGATIVE (NEGATIVE); NITRITE NEGATIVE (NEGATIVE); PROTEIN NEGATIVE (NEGATIVE); SPECIFIC GRAVITY 1.005 (1.005-1.020)
[2018-11-19 14:15] VITALS: BP 103/72
[2018-11-19 15:47] VITALS: BP 101/66
[2018-11-19 21:37] VITALS: BP 104/69
[2018-11-20 00:49] VITALS: BP 100/66
[2018-11-20 05:04] LABS: BASOPHILS 0.4 % (0-2); HEMATOCRIT 29.8 % (42.0-54.0); HEMOGLOBIN 10.1 g/dL (13.5-17.5); IMMATURE GRANULOCYTES 0.5 % (0-5); LYMPHOCYTES 24.4 % (15-50); MCH 27.2 pg (26.0-34.0); MCHC 33.9 g/dL (31.0-37.0); MCV 80.3 fL (80.0-100.0); MONOCYTES 17.1 % (2-11); NEUTROPHILS 56.6 % (40-80); RBC 3.71 10x6/uL (4.20-6.10); RDW 18.8 % (11.5-14.5)
[2018-11-20 05:13] LABS: PLATELET COUNT 193 10x3/uL (130-400)
[2018-11-20 05:16] VITALS: BP 115/78
[2018-11-20 05:24] LABS: CALC OSMOLALITY 278 mosm/kg (275-300); CALCIUM 8.8 mg/dL (8.5-10.1); CARBON DIOXIDE 30.3 mmol/L (21.0-32.0); CHLORIDE - SERUM 103 mmol/L (98-107); CREATININE - SERUM 0.7 mg/dL (0.6-1.3); GLUCOSE 99 mg/dL (74-106); POTASSIUM - SERUM 4.1 mmol/L (3.5-5.1); SODIUM 141 mmol/L (136-145); UREA NITROGEN 8 mg/dL (7-18); eGFR NON AFRICAN AMERICAN > 90 mL/min (90-120)
[2018-11-20 08:16] VITALS: BP 100/71
[2018-11-20 12:34] VITALS: BP 110/66
[2018-11-20 16:08] VITALS: BP 102/70
[2018-11-20 22:07] VITALS: BP 122/82
[2018-11-21 01:27] VITALS: BP 148/54
[2018-11-21 05:45] VITALS: BP 105/76
[2018-11-21 06:03] LABS: CALC OSMOLALITY 277 mosm/kg (275-300); CALCIUM 9.5 mg/dL (8.5-10.1); CARBON DIOXIDE 29.8 mmol/L (21.0-32.0); CHLORIDE - SERUM 102 mmol/L (98-107); CREATININE - SERUM 0.6 mg/dL (0.6-1.3); GLUCOSE 103 mg/dL (74-106); POTASSIUM - SERUM 4.4 mmol/L (3.5-5.1); SODIUM 139 mmol/L (136-145); eGFR NON AFRICAN AMERICAN > 90 mL/min (90-120)
[2018-11-21 06:06] LABS: UREA NITROGEN 13 mg/dL (7-18)
[2018-11-21 06:10] LABS: HEMOGLOBIN 10.9 g/dL (13.5-17.5); MCH 27.3 pg (26.0-34.0); MCHC 34.1 g/dL (31.0-37.0); MCV 80.2 fL (80.0-100.0); RBC 3.99 10x6/uL (4.20-6.10); RDW 19.1 % (11.5-14.5); WBC 11.4 10x3/uL (4.8-10.8)
[2018-11-21 06:12] LABS: PLATELET COUNT 248 10x3/uL (130-400)
[2018-11-21 09:39] VITALS: BP 103/65
[2018-11-21 09:42] LABS: CRENATED CELLS OCC; EOSINOPHILS 2 % (0-7); HYPOCHROMASIA OCC; LYMPHOCYTES 21 % (15-50); MONOCYTES 17 % (2-11); NEUTROPHILS 60 % (40-80); PLATELET ESTIMATE NORMAL; TARGET CELLS OCC; TEAR DROP CELLS OCC
[2018-11-21 09:43] LABS: ANISOCYTOSIS OCC
[2018-11-21] MEDS ORDERED: HYDROXYUREA500 MG PO (10:21)
[2018-11-21] MEDS ORDERED: FOLATE0.4 MG PO (10:21)
--- NOTE | 2018-11-21 12:06 | MORECARE ---
CASE MANAGEMENT DISCHARGE SUMMARY PATIENT: MARI FITCH UNIT: [id number] ADM DATE: 11/14/18 AGE: 28 : [birth year] SEX: M ROOM/BED: D.2203 AUTHOR: GILMAR,DOC PHYSICIAN: REFERRING PHYSICIAN: ALISHA MENENDEZ DO DATE OF SERVICE: 11/21/18 Discharge Plan Patient Name: MARI FITCH Facility: [facility]:[place] : 1990 Planned Disposition: Home or Self Care Anticipated Discharge Date: Discharge Date: Expected LOS: Initial Reviewer: [email or web address] Initial Review Date: 11/14/2018 Generated: 11/21/18 1:06 pm Comments DCP- Discharge Planning Updated by [id number]: Rowena Souza on 11/21/18 11:[address] PATIENT BEING DISCHARGED TODAY, PT DENIES ANY NEEDS DCP- Discharge Planning Updated by [id number]: Rowena Souza on 11/21/18 11:[address] I HAVE CALLED [facility] AND MADE APPOITNMENTS FOR THE PATIENT SO HE HAS TRANSPORTATION TO AND FROM HIS MD APPOINTMENTS CONF #1 CARLYLET JOE GALLARDO IS [id number] CONF#[address] COHN IS [id number] [facility] # IS [phone] DCP- Discharge Planning Updated by [id number]: Rowena Souza on 11/18/18 1:[address] I CALLED DR MOSQUERA'S OFFICE SPOKE WITH Manuela DANG, PATIENT HAS NOT BEEN AT THEIR OFFICE FOR A YEAR IN A HALF AND STATED THAT SHE WOULD MAKE A FOLLOW UP APPOITNEMT FOR HIM, BUT HE HAS HAD MULTIPLE NO SHOW AND THAT HE WOULD NEED TO MAKE SURE HE MADE THIS APPOINTMENT OR HE WOULD RUN THE RISK TO BE FIRED. I HAVE MADE HIS FOLLOW UP APPOINTMENT FOR SundayNov AT 1:30 PM. HE WILL SEE ZENOBIA GALLARDO APN. I HAVE EXPLAINED TO HIM THAT ABOVE AND HE STATES UNDERSTANDING. CM TO FOLLOW AND ASSIST NEEDED DCP- Discharge Planning Updated by [email or web address]: Rowena Souza on 11/18/18 1:[address] Patient Name: MARI FITCH Admission Status: ER Accout number: [id number] Admission Date: 11-14-2018 : 1990 Admission Diagnosis: Attending: ALISHA MENENDEZ Current LOS: 4 Anticipated DC Date: Planned Disposition: Home or Self Care Primary Insurance: MEDICAID [place] Discharge Planning Comments: CM met with patient to complete initial dc planning assessment. CM educated patient on the CM role and verbal consent given by patient to complete assessment. Patient lives with a roommate where he is independent with his care. At discharge patient plans to return home and feels this is a safe discharge. CM discussed availability of home health, rehab services, and medical equipment. He stated Juan (his roommate) will be his commercial relief driver home. Patient denied known discharge needs at this time. CM will continue to follow and will assist as needed with dc plans/needs. Management Accounts Manager: Rowena Souza DCPIA - Discharge Planning Initial Assessment Updated by [email or web address]: Rowena Souza on 11/18/18 2:25 pm * Is the patient Alert and Oriented? Yes * How many steps to enter\exit or inside your home? * PCP EVELINE ? * Pharmacy [facility] [employer] ([place] [address] * Preadmission Environment Home Alone * ADLs Independent * Equipment None * List name and contact numbers for known caregivers / representatives who currently or will assist patient after discharge: JUAN (ROOMMATE) [phone] * Verbal permission to speak to the caregivers and representatives has been obtained from the patient. N/A * Community resources currently utilized None * Additional services required to return to the preadmission environment? No * Can the patient safely return to the preadmission environment? Yes * Has this patient been hospitalized within the prior 30 days at any hospital? No Last DP export: 11/18/18 1:46 p Patient Name: MARI FITCH Page [id number] at 1206 All edits/amendments must be made on the electronic document DICTATION DATE: 11/21/18 1206 HOUSE FURNISHINGS SUPERVISOR: JOSÉ MIGUEL 11/21/18 1206 RPT#: [id number] DC DATE: STATUS: ADM IN [facility] [address] [place] [address] END OF REPORT
--- NOTE | 2018-11-21 12:29 | MORECARE ---
CASE MANAGEMENT DISCHARGE SUMMARY PATIENT: MARI FITCH UNIT: [id number] ADM DATE: 11/14/18 AGE: 28 : [birth year] SEX: M ROOM/BED: D.2203 AUTHOR: GILMAR,DOC PHYSICIAN: REFERRING PHYSICIAN: ALISHA MENENDEZ DO DATE OF SERVICE: 11/21/18 Discharge Plan Patient Name: MARI FITCH Facility: [facility]:[place] : 1990 Planned Disposition: Home or Self Care Anticipated Discharge Date: Discharge Date: Expected LOS: Initial Reviewer: [email or web address] Initial Review Date: 11/14/2018 Generated: 11/21/18 1:28 pm Comments DCP- Discharge Planning Updated by [email or web address]: Rowena Souza on 11/21/18 11:[address] PATIENT BEING DISCHARGED TODAY, PT DENIES ANY NEEDS DCP- Discharge Planning Updated by [email or web address]: Rowena Souza on 11/21/18 11:[address] I HAVE CALLED [facility] AND MADE APPOITNMENTS FOR THE PATIENT SO HE HAS TRANSPORTATION TO AND FROM HIS MD APPOINTMENTS CONF #1 CARLYLET JOE GALLARDO IS [id number] CONF#[address] COHN IS [id number] [facility] # IS [phone] DCP- Discharge Planning Updated by [email or web address]: Rowena Souza on 11/18/18 1:[address] I [address]ED DR MOSQUERA'S OFFICE SPOKE WITH Manuela DANG, PATIENT HAS NOT BEEN AT THEIR OFFICE FOR A YEAR IN A HALF AND STATED THAT SHE WOULD MAKE A FOLLOW UP APPOITNEMT FOR HIM, BUT HE HAS HAD MULTIPLE NO SHOW AND THAT HE WOULD NEED TO MAKE SURE HE MADE THIS APPOINTMENT OR HE WOULD RUN THE RISK TO BE FIRED. I HAVE MADE HIS FOLLOW UP APPOINTMENT FOR SundayNov AT 1:30 PM. HE WILL SEE ZENOBIA GALLARDO APN. I HAVE EXPLAINED TO HIM THAT ABOVE AND HE STATES UNDERSTANDING. CM TO FOLLOW AND ASSIST NEEDED DCP- Discharge Planning Updated by [email or web address]: Rowena Souza on 11/18/18 1:[address] Patient Name: MARI FITCH Admission Status: ER Accout number: [id number] Admission Date: 11-14-2018 : 1990 Admission Diagnosis: Attending: ALISHA MENENDEZ Current LOS: 4 Anticipated DC Date: Planned Disposition: Home or Self Care Primary Insurance: [place]ID [place] Discharge Planning Comments: CM met with patient to complete initial dc planning assessment. CM educated patient on the CM role and verbal consent given by patient to complete assessment. Patient lives with a roommate where he is independent with his care. At discharge patient plans to return home and feels this is a safe discharge. CM discussed availability of home health, rehab services, and medical equipment. 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 Patient denied known discharge needs at this time. CM will continue to follow and will assist as needed with dc plans/needs. Railroad Surveyor: Rowena Souza DCPIA - Discharge Planning Initial Assessment Updated by [email or web address]: Rowena Souza on 11/18/18 2:25 pm * Is the patient Alert and Oriented? Yes * How many steps to enter\exit or inside your home? * PCP EVELINE ? * Pharmacy [facility] * Preadmission Environment Home Alone * ADLs Independent * Equipment None * List name and contact numbers for known caregivers / representatives who currently or will assist patient after discharge: JUAN (ROOMMATE) [phone] * Verbal permission to speak to the caregivers and representatives has been obtained from the patient. N/A * Community resources currently utilized None * Additional services required to return to the preadmission environment? No * Can the patient safely return to the preadmission environment? Yes * Has this patient been hospitalized within the prior 30 days at any hospital? No External Providers [place] [facility] Next Contact Date: Service Request Date: Service Type: Resolution: Reviewer: Comments: Last DP export: 11/21/18 11:06 a Patient Name: MARI FITCH Page [id number] at 1229 All edits/amendments must be made on the electronic document DICTATION DATE: 11/21/181227 CAN VACUUM TESTER: JOSÉ MIGUEL 11/21/188 RPT#: [id number] DC DATE: STATUS: ADM IN [facility] [address] [place] [address] END OF REPORT
--- NOTE | 2018-11-23 12:04 | MORECARE ---
CASE MANAGEMENT DISCHARGE SUMMARY PATIENT: MARI FITCH UNIT: [id number] ADM DATE: 11/14/18 AGE: 28 : [birth year] SEX: M ROOM/BED: D.2203 AUTHOR: GILMAR,DOC PHYSICIAN: REFERRING PHYSICIAN: ALISHA MENENDEZ DO DATE OF SERVICE: 11/23/18 Discharge Plan Patient Name: MARI FITCH Facility: [facility]:[place] : 1990 Planned Disposition: Home or Self Care Anticipated Discharge Date: Discharge Date: 11/21/2018 Expected LOS: Initial Reviewer: [email or web address] Initial Review Date: 11/14/2018 Generated: 11/23/18 1:04 pm Comments DCP- Discharge Planning Updated by [email or web address]: Rowena Souza on 11/21/18 11:[address] PATIENT BEING DISCHARGED TODAY, PT DENIES ANY NEEDS DCP- Discharge Planning Updated by [email or web address]: Rowena Souza on 11/21/18 11:[address] I HAVE CALLED [facility] AND MADE APPOITNMENTS FOR THE PATIENT SO HE HAS TRANSPORTATION TO AND FROM HIS MD APPOINTMENTS CONF #1 FOT JOE GALLARDO IS [id number] CONF#[address] COHN IS [id number] [facility] # IS [phone] DCP- Discharge Planning Updated by [email or web address]: Rowena Souza on 11/18/18 1:[address] I CALLED DR MOSQUERA'S OFFICE SPOKE WITH A ALTON, PATIENT HAS NOT BEEN AT THEIR OFFICE FOR A YEAR IN A HALF AND STATED THAT SHE WOULD MAKE A FOLLOW UP APPOITNEMT FOR HIM, BUT HE HAS HAD MULTIPLE NO SHOW AND THAT HE WOULD NEED TO MAKE SURE HE MADE THIS APPOINTMENT OR HE WOULD RUN THE RISK TO BE FIRED. I HAVE MADE HIS FOLLOW UP APPOINTMENT FOR SundayNov AT 1:30 PM. HE WILL SEE ZENOBIA GALLARDO APN. I HAVE EXPLAINED TO HIM THAT ABOVE AND HE STATES UNDERSTANDING. CM TO FOLLOW AND ASSIST NEEDED DCP- Discharge Planning Updated by [email or web address]: Rowena Souza on 11/18/18 1:[address] Patient Name: MARI FITCH Admission Status: ER Accout number: [id number] Admission Date: 11-14-2018 : 1990 Admission Diagnosis: Attending: ALISHA MENENDEZ Current LOS: 4 Anticipated DC Date: Planned Disposition: Home or Self Care Primary Insurance: MEDICAID [place] Discharge Planning Comments: CM met with patient to complete initial dc planning assessment. CM educated patient on the CM role and verbal consent given by patient to complete assessment. Patient lives with a roommate where he is independent with his care. At discharge patient plans to return home and feels this is a safe discharge. CM discussed availability of home health, rehab services, and medical equipment. 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 Patient denied known discharge needs at this time. CM will continue to follow and will assist as needed with dc plans/needs. Data Analyst Report Writer: Rowena Souza DCPIA - Discharge Planning Initial Assessment Updated by [email or web address]: Rowena Souza on 11/18/18 2:25 pm * Is the patient Alert and Oriented? Yes * How many steps to enter\exit or inside your home? * PCP EVELINE ? * Pharmacy [facility] * Preadmission Environment Home Alone * ADLs Independent * Equipment None * List name and contact numbers for known caregivers / representatives who currently or will assist patient after discharge: JUAN (ROOMMATE) [phone] * Verbal permission to speak to the caregivers and representatives has been obtained from the patient. N/A * Community resources currently utilized None * Additional services required to return to the preadmission environment? No * Can the patient safely return to the preadmission environment? Yes * Has this patient been hospitalized within the prior 30 days at any hospital? No Last DP export: 11/21/18 11:29 a Patient Name: MARI FITCH Page [phone] at 1204 All edits/amendments must be made on the electronic document DICTATION DATE: 11/23/18 1204 CLAY PIGEON LOADER: JOSÉ MIGUEL 11/23/18 1204 RPT#: [id number] DC DATE:11/21/18 STATUS: DIS IN [place] [address] [place] [address] END OF REPORT
== END 2018-11-21 14:04 | disposition home or self-care (01) | DRG 812 ==
LOC: D.ER 00:46 → OBSVTIME 03:25 → D.MS 03:25
PROVIDERS: Internal Medicine Hematology & Oncology; Internal Medicine Nephrology; ADMIT Family Medicine; ATTEND Family Medicine
PROC: 05HC33Z Insertion of Infusion Device into Left Basilic Vein, Percutaneous Approach (ICD-10-PCS; principal; 2018-11-18)
DX: D57.01 Hb-SS disease with acute chest syndrome (principal); F17.203 Nicotine dependence unspecified, with withdrawal; Q89.01 Asplenia (congenital); R50.81 Fever presenting with conditions classified elsewhere; F12.90 Cannabis use, unspecified, uncomplicated; E86.0 Dehydration; M14.80 Arthropathies in other specified diseases classified elsewhere, unspecified site; D72.829 Elevated white blood cell count, unspecified; D63.8 Anemia in other chronic diseases classified elsewhere